=== PATIENT | female | born 1945 | race Caucasian/White ===

== ENCOUNTER 2017-03-27 08:18 | Observation (INO) | payer MEDICARE, BC ==
[2017-03-27] MEDS ORDERED: Heparin 10,000 UNITS/1 ML VIAL ONE ×2 (11:25→11:39)
[2017-03-27] MEDS ORDERED: Isoproterenol 0.2 MG/1 ML AMP ONE (11:30)
[2017-03-27] MEDS ORDERED: Fentanyl 100 MCG/2 ML VIAL ONE ×2 (11:31→16:22)
[2017-03-27] MEDS ORDERED: Promethazine HCl 25 MG/ML VIAL ONE (11:31)
[2017-03-27] MEDS ORDERED: Protamine Sulfate 50 MG/5 ML VIAL ONE (11:39)
[2017-03-27] MEDS ORDERED: Furosemide 40 MG/4 ML VIAL ONE (11:39)
[2017-03-27] MEDS ORDERED: PHENYLEPHRINE-NS 100 MCG/ML 10 ML SYRINGE ONE (11:56)
[2017-03-27] MEDS ORDERED: Dexamethasone 20 MG/5 ML VIAL ONE (11:56)
[2017-03-27] MEDS ORDERED: Propofol 200 MG/20 ML VIAL ONE (11:56)
[2017-03-27] MEDS ORDERED: Ondansetron HCl/PF 4 MG/2 ML Vial ONE (11:56)
--- NOTE | 2017-03-27 15:31 | OP ---
DATE OF PROCEDURE: 03/27/2017 ELECTROPHYSIOLOGY PROCEDURE NOTE PROCEDURES: 1. Comprehensive EP testing with and without left atrial pacing and recording. 2. A 3D mapping and ablation of atrial fibrillation. 3. Transseptal catheterization x2. 4. Intracardiac echocardiography. 5. Cardiac medication infusion. CLINICAL INDICATION: Persistent drug refractory atrial fibrillation. DIRECTOR OF LAND ACQUISITION: Robert Mcneil M.D. ASA CLASSIFICATION: III. ANESTHESIA: General endotracheal anesthesia per Anesthesiology. ADDITIONAL CARDIAC MEDICATIONS: Isoproterenol 5 mcg per minute infusion. Total heparin given 19,00 0 units. Total protamine given 40 mg. ACUTE COMPLICATIONS: None apparent. TOTAL RADIOFREQUENCY TIME: 27.4 minutes. TOTAL FLUOROSCOPY TIME: Zero. METHODS: After informed consent was obtained, the patient was taken to the EP lab in a fasting stat e. Both groins were prepped and draped using ultrasound guidance. The right and left femoral veins were accessed and wires were inserted into the central venous system. The wire was used to place a n 11 Norwegian sheath in the left groin. This was used to place an intracardiac echo probe into the ri ght atrium and right ventricle for imaging. A 8-Norwegian sheath was then placed in the remaining cole ths, one on the left and two on the right. These were all replaced by long 8 Norwegian sheath for cath eter stability. A 3D map was obtained at the right atrium using a circular and ablation catheter al hollie with the coronary sinus. The patient has been anticoagulated and transseptal catheterization wa s performed on two occasions. The patient was anticoagulated at that time, 3D map was obtained at t he left atrium and temperature probe was placed in the esophagus monitoring temperatures during the ablation procedure. Radiofrequency current was applied isolating the veins in the posterior wall of the left atrium and coronary sinus ablation was also delivered at this appeared to be a non-venous trigger. Afterwards, the patient will underwent cardioversion and remained in sinus rhythm. At the conclusion of the procedure, heparin was reversed. Sheaths were pulled. Hemostasis was achieved w ith suture closure. RESULTS: 1. Baseline intervals, QRS interval 52 milliseconds, QT interval 360 milliseconds, HV interval 63 m illiseconds. 2. Atrial function. The patient was in coarse atrial fibrillation. There was severe scar seen dur ing the ablation. Isolation was performed of all pulmonary veins. The patient left common pulmonar y vein, which was isolated singularly. Posterior wall was also incorporated into the lesion sets. Coronary sinus also appeared to be a nonvenous trigger which was ablated and isolated. 3. Ablation details, a total of 27.4 minutes of RF were delivered using an irrigated [employer] ablation catheter. IMPRESSION: Successful ablation isolating pulmonary veins and the posterior wall of the left atrium along the coronary sinus. RECOMMENDATION: Continue with oral anticoagulation.
[2017-03-27] MEDS ORDERED: Ondansetron HCl/PF 4 MG/2 ML Vial IVP PRN ×2 (17:02→18:07)
[2017-03-27] MEDS ORDERED: Non-Formulary Medication 1 EACH PO PRN (17:02)
[2017-03-27] MEDS ORDERED: Promethazine HCl 25 MG/ML VIAL IM/IV PRN (17:02)
[2017-03-27 17:54] VITALS: BMI 28.3
[2017-03-27] MEDS ORDERED: Morphine Sulfate 2 MG/ML SYRINGE SLOW IVP PRN (18:03)
[2017-03-27] MEDS ORDERED: HYDROcodone/Acetaminophen 5/325 mg Tablet PO PRN ×2 (18:03)
[2017-03-27] MEDS ORDERED: diphenhydrAMINE HCl 25 MG CAP PO PRN (18:07)
[2017-03-27] MEDS ORDERED: Temazepam 15 MG CAP PO PRN (18:07)
[2017-03-27] MEDS ORDERED: Silver Sulfadiazine 1% Cream 50 GM JAR TOP PRN (18:07)
[2017-03-27] MEDS ORDERED: Bisacodyl 10 MG SUPP PR PRN (18:07)
[2017-03-27] MEDS ORDERED: traMADol HCl 50 MG TAB PO PRN (18:07)
[2017-03-27] MEDS ORDERED: Bisacodyl 5 MG TAB PO PRN (18:07)
[2017-03-27] MEDS ORDERED: Acetaminophen 325 MG TAB PO PRN (18:07)
[2017-03-27] MEDS ORDERED: Mag-Al 1200 mg/1200 mg/30 ML UDCUP PO PRN (18:07)
[2017-03-27] MEDS ORDERED: Nitroglycerin 0.4 MG TAB (25 Tab Bottle) SL PRN (18:07)
[2017-03-27] MEDS: Apixaban 5 MG TAB PO SCH (22:22)
[2017-03-27] MEDS: Multivit, Therapeutic 1 TAB PO SCH (22:22)
[2017-03-27] MEDS: CeleCOXIB 100 MG CAP PO SCH (22:22)
[2017-03-27] MEDS: Sucralfate 1 GM/10 ML UDCUP PO SCH (22:23)
--- NOTE | 2017-03-28 01:44 | OP ---
REFERRING PHYSICIAN: Robert Mcneil M.D. REASON FOR PROCEDURE: Ms. Santana underwent pulmonary venous isolation procedure. Today, she had po stoperative hypertension and 2D echo was performed to rule out pericardial effusion. Echocardiogram was performed. Images were obtained from the apical and subcostal view ruling out si gnificant amount of pericardial effusion. Trace pericardial effusion is seen. No evidence of tampo nade is documented. Normal LV function is seen. CONCLUSION: No significant pericardial effusion post-pulmonary venous isolation.
[2017-03-28] MEDS: Furosemide 40 MG TAB PO SCH ×2 (06:02→15:29)
[2017-03-28] MEDS ORDERED: Dronedarone HCl 400 MG TAB PO SCH (08:00)
[2017-03-28] MEDS ORDERED: Clopidogrel Bisulfate 75 MG TAB ONE (08:16)
[2017-03-28] MEDS: Apixaban 5 MG TAB PO SCH (08:58)
[2017-03-28] MEDS: Sucralfate 1 GM/10 ML UDCUP PO SCH ×3 (08:58→15:29)
[2017-03-28] MEDS: Multivit, Therapeutic 1 TAB PO SCH (08:58)
[2017-03-28] MEDS: CeleCOXIB 100 MG CAP PO SCH (08:58)
[2017-03-28 11:57] VITALS: BP 101/57; TEMP 97.5
--- NOTE | 2017-03-29 07:03 | DIS ---
DATE OF ADMISSION: 03/27/2017 DATE OF DISCHARGE: 03/28/2017 ADMISSION DIAGNOSES: 1. Persistent atrial fibrillation despite of previous Multaq therapy. 2. Chronic anticoagulation, apixaban. 3. Status post elective pulmonary venous isolation, atrial fibrillation by Dr. Mcneil on 03/27/2017 . HOSPITAL COURSE: Ms. Santana underwent the procedure as above. She has remained stable overnight. PHYSICAL EXAMINATION: VITAL SIGNS: Blood pressure 101/57, heart rate 65, respirations 16, temperature 97.5 degrees Fahren heit. GENERAL: This is an alert, oriented woman in no apparent distress. NECK: Supple. Jugular veins not distended. CHEST: Coarse. No crackles. CARDIOVASCULAR: Heart sounds are regular with rate and rhythm. No murmur or gallop. ABDOMEN: Benign, bowel sounds positive. EXTREMITIES: Lower extremities without edema, clubbing, or cyanosis. The both groin sites are with out significant hematoma. DATABASE: Telemetry strips revealed a sinus rhythm. No recurrent atrial arrhythmias are seen. ASSESSMENT: Ms. Santana is a 71-year-old woman with history of persistent atrial fibrillation despit e Multaq therapy. She underwent a pulmonary venous isolation procedure. She tolerated the procedur e well. No complications were noted. PLAN: Continue previous Eliquis for anticoagulation, stop Multaq. The patient has received Protoni x 40 mg a day for a month, Carafate for next 2 weeks, Lasix 40 mg daily will be added for next few d ays with 20 mEq of potassium supplementation done as needed. Otherwise, no change in her medication regimen was made. She is to follow up in 6 weeks.
== END 2017-03-28 15:36 | disposition home or self-care (01) ==
LOC: CCL 08:18 → 2SW 09:56
PROVIDERS: ADMIT Internal Medicine Cardiovascular Disease; ATTEND Internal Medicine Cardiovascular Disease
DX: I48.1 Persistent atrial fibrillation (principal); G47.33 Obstructive sleep apnea (adult) (pediatric); Z99.89 Dependence on other enabling machines and devices; Z79.01 Long term (current) use of anticoagulants; Z79.899 Other long term (current) drug therapy; Z98.84 Bariatric surgery status; Z96.1 Presence of intraocular lens; Z90.49 Acquired absence of other specified parts of digestive tract; Z98.890 Other specified postprocedural states; Z87.81 Personal history of (healed) traumatic fracture; Z82.3 Family history of stroke; Z82.49 Family history of ischemic heart disease and other diseases of the circulatory system
CPT/HCPCS: 76942; 85347 ×2; 93005 ×2; 93613; 93623; 93656; 93662; 96374; C1731; C1732 ×2; C1759; C1769; G0378; 93010; J1100; J1644; J1940; J2405; J2550; J2704; J2720; J3010

== ENCOUNTER 2017-04-14 13:27 | Outpatient (CLI) | payer MEDICARE, BC ==
[2017-04-14 14:40] LABS: Hematocrit 38.3 % (36.0-47.0); Mean Platelet Volume 7.9 fL (7.4-10.4); Red Blood Cell (RBC) Count 4.38 mill/uL (4.20-5.40); White Blood Cell (WBC) Count 9.1 thou/uL (4.8-10.8)
[2017-04-14 14:45] LABS: PTT 36.1 SEC (22.9-36.1); Prothrombin Time 17.9 SEC (12.0-14.7)
[2017-04-14 15:05] LABS: Anion Gap 11 mmol/L (10-20); BUN (Urea Nitrogen) 33 mg/dL (9.8-20.1); Calc. Creatinine Clearance 0 mL/min (70-130); Calcium 9.4 mg/dL (7.8-10.44); Carbon Dioxide 28 mmol/L (23-31); Chloride 100 mmol/L (98-107); Estimated GFR-MDRD 78
== END 2017-04-14 13:28 | disposition home or self-care (01) ==
LOC: LABBT 13:27
PROVIDERS: ATTEND Internal Medicine Cardiovascular Disease
DX: Z01.818 Encounter for other preprocedural examination (principal); I48.91 Unspecified atrial fibrillation
CPT/HCPCS: 80048; 85027; 85610; 85730; 93005; 93010

== ENCOUNTER 2017-04-16 11:54 | Day surgery (SDC) | payer MEDICARE, BC ==
[2017-04-14 13:46] VITALS: BMI 27.6
--- NOTE | 2017-04-16 18:32 | OP ---
PROCEDURE: Cardioversion. REASON FOR PROCEDURE: Ms. Santana is a 72-year-old female who underwent recent left atrial ablation and pulmonary venous isolation procedure who has recurrent atrial tachyarrhythmia. She was placed o n Multaq. She is on full anticoagulation without fail and she is here for cardioversion. DESCRIPTION OF THE PROCEDURE: The patient received deep sedation by Anesthesia specialist. After a dequate level of sedation achieved, a synchronized 70 joule shock promptly converted the patient nessa k to sinus rhythm. CONCLUSION: Successful cardioversion. PLAN: Routine followup.
== END 2017-04-16 15:20 | disposition home or self-care (01) ==
LOC: CCL 11:54
PROVIDERS: ATTEND Internal Medicine Cardiovascular Disease
DX: I48.1 Persistent atrial fibrillation (principal); I48.4 Atypical atrial flutter; G47.33 Obstructive sleep apnea (adult) (pediatric); E78.5 Hyperlipidemia, unspecified; Z79.01 Long term (current) use of anticoagulants; Z79.899 Other long term (current) drug therapy; Z99.89 Dependence on other enabling machines and devices; Z98.84 Bariatric surgery status; Z96.1 Presence of intraocular lens; Z90.49 Acquired absence of other specified parts of digestive tract; Z98.890 Other specified postprocedural states
CPT/HCPCS: 92960

== ENCOUNTER 2017-11-23 09:42 | Inpatient (IN) | payer MEDICARE, BC ==
[2017-11-23 10:18] LABS: Hemoglobin 14.9 g/dL (12.0-16.0); Mean Corpuscular HGB CONC 31.8 g/dL (32.0-36.0); Mean Corpuscular Hemoglobin 27.8 pg (27.0-31.0); Mean Corpuscular Volume 87.6 fl (81.0-99.0); Mean Platelet Volume 7.2 fL (7.4-10.4); Platelet Count 485 thou/uL (130-400); RBC Distribution Width 12.5 % (11.5-14.5); Red Blood Cell (RBC) Count 5.34 mill/uL (4.20-5.40); White Blood Cell (WBC) Count 19.7 thou/uL (4.8-10.8)
[2017-11-23 10:40] LABS: ALT (SGPT) 11 U/L (8-55); AST (SGOT) 25 U/L (5-34); Albumin 4.6 g/dL (3.4-4.8); Alkaline Phosphatase 56 U/L (40-150); Anion Gap 8 mmol/L (10-20); BUN (Urea Nitrogen) 14 mg/dL (9.8-20.1); Bilirubin, Total 0.4 mg/dL (0.2-1.2); Calc. Creatinine Clearance 0 mL/min (70-130); Calcium 9.7 mg/dL (7.8-10.44); Carbon Dioxide 24 mmol/L (23-31); Chloride 111 mmol/L (98-107); Estimated GFR-MDRD 68; Globulin 2.6 g/dL (2.4-3.5); Glucose 105 mg/dL (83-110); Potassium 3.9 mmol/L (3.5-5.1); Protein, Total 7.2 g/dL (6.0-8.3); Sodium 139 mmol/L (136-145)
[2017-11-23 10:45] LABS: Band 10 % (5-11); CKMB 0.5 ng/mL (0-6.6); Lymphocytes 4 % (21-51); MDiff Complete? YES; Monocytes 2 % (0-10); Neutrophil 84 % (42-75); PLT Morphology Comment Appears Increased; Platelet Clumps SLIGHT; Troponin I Less than 0.010 ng/mL (< 0.028)
[2017-11-23] MEDS ORDERED: VANCOMYCIN HCL IVPB SCH (12:45)
[2017-11-23] MEDS ORDERED: SODIUM CHLORIDE IVPB SCH (12:45)
[2017-11-23] MEDS ORDERED: ADMIXTURE FEE IVPB SCH (12:45)
[2017-11-23] MEDS ORDERED: Piperacillin/Tazobactam 4.5 GM VIAL ONE (12:45)
--- NOTE | 2017-11-23 13:09 | RAD ---
RADIOGRAPH CHEST 1 VIEW: Date: 11/23/17 Time: 1111 HOURS HISTORY: 72-year-old female with chest pain. COMPARISON: 10/01/11. FINDINGS: Hyperinflation consistent with COPD. Prominent interstitial markings, probably chronic, worse than be fore. No consolidation. Retrocardiac midline mass. No pulmonary edema or pneumothorax. No effacement of the lateral costophrenic angles. Old left rib fracture deformities. IMPRESSION: 1. No acute pulmonary findings. 2. Moderate sized hiatal hernia. 3. Emphysema. 4. Old, healed, traumatic left upper rib fracture deformities. [facility] [] POS: [facility]
[2017-11-23 13:25] LABS: Bilirubin Negative (Negative); Blood, Urine Moderate (Negative); Clarity CLOUDY (Clear); Glucose, Urine (Dipstick) Negative (Negative); Leukocyte Moderate (Negative); Nitrite Positive (Negative); Protein, Urine (Dipstick) Trace mg/dL (Neg-Trace); Specific Gravity, Urine 1.017 (1.002-1.036); Urobilinogen 0.2 mg/dL (0.2-1.0)
[2017-11-23 13:27] LABS: Bacteria/HPF 2+ HPF (None Seen); Pathc Cast-AUWi Flag 1.16 (0-2.49); Squamous Epithelial 0-3 HPF (0-3); WBC/HPF 21-50 HPF (0-3)
[2017-11-23 13:39] LABS: Hyaline Casts/LPF 4-6 HYALINE CAST LPF (0-3 Hyaline); Other Casts/LPF 0-3 COARSE GRAN LPF (0-3 Hyaline)
--- NOTE | 2017-11-23 14:23 | PDOC.FPRHP ---
- History of Present Illness Chief Complaint: weakness, chills History of Present Illness: 72 year old female with PMH of atrial fibrillation s/p ablation and cardioversion who presents with a one weak history of weakness. She states that one week ago she had N/V that lasted for about 8 hours. Emesis was NBNB. She was unable to eat for several days due to nausea but had been staying hydrated with fluids. On Friday, she finally attempted to eat again and was able to keep it down. She thought she was feeling much better until she woke up this morning. She could barely walk from room to room due to weakness. She denies any shortness of breath, chest pain, palpitations, or edema. She denies any sick contacts. Patient went to urgent care and was found to have SBP in 70's. She was then transferred over to ED for further evaluation. On presentation to ED her SBP was in the low 80's. After 2L NS bolus, it stabilized in low 100's which is her baseline. She denies any dysuria, but does endorse increased urinary frequency and incontinence. ED Course: 30 ml/kg NS bolus, Vanc 1150 mg, zosyn 4.5 g, 2 L NS - Allergies/Adverse Reactions Allergies Allergy/AdvReac Type Severity Reaction Status Date / Time No Known Allergies Allergy Verified 03/27/17 20:25 - Home Medications Medication Instructions Recorded Confirmed Type Aspirin [Ecotrin] 81 mg PO DAILY 11/23/17 11/23/17 History Celecoxib [Celebrex] 200 mg PO BID 11/23/17 11/23/17 History Journey 3+3 Bariatric Multi Cap 3 capsule PO BID 11/23/17 11/23/17 History - History PMHx: Atrial fibrillation s/p ablation and cardioversion, RAMANDEEP PSHx: Lap band converted to gastric sleeve, cholecystectomy. thoracotomy d/t complication of gastric sleeve surgery FHx: Non-contributory Social: Denies tobacco, alcohol, or drug use. - Review of Systems General: reports: fever/chills, weight/appetite/sleep changes, night sweats, fatigue Eyes: denies: eye pain, vision changes ENT: denies: nasal congestion, rhinorrhea Respiratory: reports: exercise intolerance (due to weakness). denies: cough, congestion, shortness of breath Cardiovascular: denies: chest pain, palpitation, edema, paroxysmal nocturnal dyspnea, orthopnea Gastrointestinal: reports: nausea, vomiting. denies: diarrhea, constipation, abdominal pain Genitourinary: reports: incontinence, polyuria. denies: dysuria Skin: denies: rashes, lesions, jaundice Musculoskeletal: denies: pain, tenderness, stiffness Neurological: reports: weakness. denies: numbness, syncope, seizure Psychological: denies: anxiety, depression - Vital signs BP: 79/48 HR: 119 RR: 18 Tmax: 97.6 F Pox: 96% on RA Wt: 77.20 kg - Physical Exam Constitutional: NAD, awake, alert and oriented, well developed HEENT: normocephalic and atraumatic, EOMI, conjunctiva clear, no scleral icterus -HEENT: Dry mucous membranes Neck: supple, FROM, trachea midline Heart: RRR, normal S1/S2, no murmurs/rubs/gallops -Heart: trace edema Lungs: CTAB, no respiratory distress, good air movement, no wheezing Abdomen: soft, non-tender, bowel sounds present, no masses/distention Musculoskeletal: normal structure, normal tone Neurological: no focal deficit, CN II-XII intact Skin: no rash/lesions, capillary refill <2 seconds Heme/Lymphatic: no unusual bruising or bleeding, no purpura Psychiatric: normal mood and affect, good judgment and insight, intact recent and remote memory FMR H&P: Results - Labs Result Diagrams: 11/23/17 10:08 11/23/17 10:08 Lab results: WBC 19.7 thou/uL (4.8-10.8) H 11/23/17 10:08 Hgb 14.9 g/dL (12.0-16.0) 11/23/17 10:08 Hct 46.8 % (36.0-47.0) 11/23/17 10:08 MCV 87.6 fl (81.0-99.0) 11/23/17 10:08 Plt Count 485 thou/uL (130-400) H 11/23/17 10:08 Band Neuts % (Manual) 10 % (5-11) 11/23/17 10:08 Sodium 139 mmol/L (136-145) 11/23/17 10:08 Potassium 3.9 mmol/L (3.5-5.1) 11/23/17 10:08 Chloride 111 mmol/L (98-107) H 11/23/17 10:08 Carbon Dioxide 24 mmol/L (23-31) 11/23/17 10:08 BUN 14 mg/dL (9.8-20.1) 11/23/17 10:08 Creatinine 0.82 mg/dL (0.6-1.1) 11/23/17 10:08 Glucose 105 mg/dL (83-110) 11/23/17 10:08 Lactic Acid 1.5 mmol/L (0.5-2.2) 11/23/17 10:08 Calcium 9.7 mg/dL (7.8-10.44) 11/23/17 10:08 Total Bilirubin 0.4 mg/dL (0.2-1.2) 11/23/17 10:08 AST 25 U/L (5-34) 11/23/17 10:08 ALT 11 U/L (8-55) 11/23/17 10:08 Alkaline Phosphatase 56 U/L (40-150) 11/23/17 10:08 Creatine Kinase 30 U/L (29-168) 11/23/17 10:57 CK-MB (CK-2) 0.5 ng/mL (0-6.6) 11/23/17 10:08 B-Natriuretic Peptide 411.9 pg/mL (0-100) H 11/23/17 10:57 Serum Total Protein 7.2 g/dL (6.0-8.3) 11/23/17 10:08 Albumin 4.6 g/dL (3.4-4.8) 11/23/17 10:08 Urine Ketones Trace mg/dL (Negative) H 11/23/17 12:57 Urine Blood Moderate (Negative) H 11/23/17 12:57 Urine Nitrite Positive (Negative) H 11/23/17 12:57 Ur Leukocyte Esterase Moderate (Negative) H 11/23/17 12:57 Urine RBC 4-6 HPF (0-3) 11/23/17 12:57 Urine WBC 21-50 HPF (0-3) H 11/23/17 12:57 Ur Squamous Epith Cells 0-3 HPF (0-3) 11/23/17 12:57 Urine Bacteria 2+ HPF (None Seen) H 11/23/17 12:57 - EKG Interpretation EKG: atrial fibrillation with rapid ventricular response - Radiology Interpretation Chest x-ray Status: image reviewed by me, report reviewed by me Additional comment: No acute changes. Emphysema. FMR H&P: A/P - Problem List (1) Severe sepsis Current Visit: Yes Status: Acute Code(s): A41.9 - SEPSIS, UNSPECIFIED ORGANISM; R65.20 - SEVERE SEPSIS WITHOUT SEPTIC SHOCK (2) UTI (urinary tract infection) Current Visit: Yes Status: Acute (3) Atrial fibrillation Current Visit: Yes Status: Acute Code(s): I48.91 - UNSPECIFIED ATRIAL FIBRILLATION (4) RAMANDEEP (obstructive sleep apnea) Current Visit: Yes Status: Chronic Code(s): G47.33 - OBSTRUCTIVE SLEEP APNEA (ADULT) (PEDIATRIC) - Plan Severe sepsis 2/2 UTI - 30 ml/kg bolus in ED and 2L NS bolus - Adequately fluid resuscitated - Tolerating PO - Vanc and zosyn x1 in ED; will d/c and start rocephin - Blood and urine cultures pending - Monitor BP; bolus if BP low - BNP elevated at 411; no comparison level, so gentle hydration UTI - See plan as above Atrial fibrillation - RVR resolved without intervention - s/p ablation and cardioverison earlier in the year; was taken off of all anti- arrhythmics and anticoagulation in September - Follows with Dr. Locke, consider consulting in AM due to recurrence of A-fib - On baby ASA daily - Consider digoxin if pt goes into afib with RVR as BP is already low - Echo pending to evaluate for HF as cause of atrial fib recurrence Elevated BNP - Around 400; no baseline lab value to compare - Echo pending to evaluate for HF as cause of afib recurrence RAMANDEEP - On home CPAP; will continue while in hospital Code status: Full DVT ppx: SCDs Dispo: Admit to IMCU. Anticipate LOS >48 hours. FMR H&P: Upper Level - Plan Date/Time: 11/23/17 1423 Sarah Milian, PGY3, have evaluated this patient and agree with findings/plan as outlined by international recruiter resident. Pertinent changes/additions are listed here. This is a 72yo WF w/ PMH A-fib s/p ablation in 2017, thoracostomy, hx of gastric sleeve, presented initially to outside urgent care for weakness that has progressively gotten worse over the past few days, and was found to be in a- fib w/ RVR, and they were unable to get a pulse, so she was transferred over here. She reports F and N/V within the past week, with diminished appetite for the past few days. When coming to [facility], she was found to be hypotensive with initial BP in 70's, however they responded to fluids with SBP in 90's bringing it closer to her normal SBP around 100. Denies any CP, SOB, LE edema, palpitations, increased weight gain. PE: Gen: Non-toxic appearing female, AOX4, in no acute distress. CV: Irregularly irregular. No murmurs Resp: CTA bilaterally Ext: Non-pitting edema LE bilaterally Abd: [id number], no rebound, no guarding. A/P: 1) Sepsis 2/2 UTI - will start rocephin and f/u with urine cx. Responding to fluids. F/u with blood cx. 2) Paroxysmal A-fib- Currently rate controlled. Will monitor closely and use Digoxin to rate control patient if needed. Consider f/u with Dr. Locke tomorrow or sooner if any concerns, as patient is s/p ablation in 2017 and currently on ASA. UTI may have caused A-fib to reoccur. Will also check TSH. 3) UTI - Rocephin, gentle fluids. 4) Elevated BNP- currently asymptomatic. Will monitor fluid status, and give gentle fluids. 5) RAMANDEEP - CPAP at night 6) HLD - consider statin. Unsure why patient is off statins. F/u with PCP outpatient.
[2017-11-23] MEDS ORDERED: Acetaminophen 325 MG TAB PO PRN (14:33)
[2017-11-23] MEDS ORDERED: Ondansetron ODT 4 MG TAB PO PRN ×2 (14:33→14:38)
[2017-11-23] MEDS ORDERED: Ondansetron HCl/PF 4 MG/2 ML Vial IVP PRN ×2 (14:33→14:38)
[2017-11-23] MEDS ORDERED: Sodium Chloride 0.9% 1,000 ML IV SCH ×3 (14:38→15:10)
[2017-11-23 14:59] VITALS: BMI 29.6
[2017-11-23 16:11] LABS: Thyroid Stimulating Hormone 0.3775 uIU/mL (0.35-4.94)
[2017-11-23] MEDS: cefTRIAXone\\ROCEPHIN 1 GM in Sodium Chloride 0.9% 100 ML IVPB SCH (16:57)
[2017-11-23] MEDS ORDERED: Piperacillin/Tazobactam 4.5 GM in Sodium Chloride 0.9% 100 ML IVPB SCH (18:00)
[2017-11-23] MEDS: Acetaminophen 325 MG TAB PO PRN (23:59)
[2017-11-24] MEDS ORDERED: Sodium Chloride 0.9% 500 ML IV SCH ×2 (00:30→06:45)
--- NOTE | 2017-11-24 00:42 | HP ---
ADDENDUM Please see the history and physical done by the resident for which I concur. Patient was seen and evaluated and discussed and examined with the residents at bedside. HISTORY OF PRESENT ILLNESS: This is a 72-year-old white female who has really had not much sourced p ast medical history and history of atrial fibrillation and rapid ventricular response which she event ually had an ablation for, comes in with one week long history of low grade fever, some nausea and vo miting, although only minimum, just generally speaking not feeling well and then got even weaker toda y. She then went to an urgent care where they cannot really even get a blood pressure on her and not ed that she was in atrial fibrillation and sent her into the emergency room. Here, blood pressures i n the 90s/40s and pulse rate in 90s intermittent atrial fibrillation. She did not really have much o ther complaints other than just extreme weakness, but now however is short of breath. No chest pain, no syncope or near syncope. Denies urinary symptoms. Past medical history, family history, surgical history, medications, social history and review of sys tems, per the resident's history and physical for which I concur. PHYSICAL EXAMINATION: GENERAL: Does not appear to be in major distress. She is pretty comfortable, breathing okay, not lo oking particularly . ENT: Does have slightly dry mucosa. Despite a couple of liters we have already given to her, which has helped to get her blood pressure to 90s/40s, otherwise ENT is normal. CHEST: Clear. CARDIOVASCULAR: Somewhat distant, but irregularly irregular on the monitor. She is currently in atr ial fibrillation. ABDOMEN: Benign. EXTREMITIES: Show no edema. LABORATORY AND X-RAY FINDINGS: Blood workup, white count is slightly elevated. Electrolytes looked fine. Chest x-ray, little rotated, but otherwise normal. ASSESSMENT AND PLAN: Atrial fibrillation with rapid ventricular response and hypotension from urinar y tract infection. Urinalysis did look like she has a bladder infection, so certainly we will cover that in uribe culture including blood culture and urine culture and we will put her on IV antibiotics, likely Levaquin. We will monitor blood pressure and pulse. We will put her in the step down unit just so we can monitor her blood pressure closely if her pulse goes too high and blood pressure starts dropping, will try p utting her on digoxin and we are going to try to hold off beta mustapha, calcium channel mustapha while blood pressure is low. We will give her fluids at this point the most important thing and make sure she is anticoagulated and put on appropriate SCDs, proton pump inhibitors, etc. History of anticoagulation, SCDs, but then likely we are going to put her back on something like Eliq uis for atrial fibrillation and she came in on aspirin.
[2017-11-24 03:54] LABS: #Lymphocytes 0.6 thou/uL (1.20-3.40); #Monocytes 1.2 thou/uL (0.11-0.59); #Neutrophils 13.8 thou/uL (1.40-6.50); %Basophils 0.1 % (0.0-1.0); %Eosinophils 0.3 % (0.0-10.0); %Lymphocytes 3.8 % (21.0-51.0); %Monocytes 7.6 % (0.0-10.0); %Neutrophils 88.2 % (42.0-75.0); Hemoglobin 12.2 g/dL (12.0-16.0); Mean Corpuscular HGB CONC 31.6 g/dL (32.0-36.0); Mean Corpuscular Hemoglobin 27.6 pg (27.0-31.0); Mean Corpuscular Volume 87.3 fl (81.0-99.0); Mean Platelet Volume 6.9 fL (7.4-10.4); Platelet Count 441 thou/uL (130-400); RBC Distribution Width 12.4 % (11.5-14.5); Red Blood Cell (RBC) Count 4.44 mill/uL (4.20-5.40); White Blood Cell (WBC) Count 15.7 thou/uL (4.8-10.8)
[2017-11-24 04:24] LABS: Anion Gap 9 mmol/L (10-20); BUN (Urea Nitrogen) 31 mg/dL (9.8-20.1); Calc. Creatinine Clearance 71 mL/min (70-130); Calcium 7.4 mg/dL (7.8-10.44); Carbon Dioxide 24 mmol/L (23-31); Chloride 106 mmol/L (98-107); Estimated GFR-MDRD 61; Glucose 100 mg/dL (83-110); Potassium 3.5 mmol/L (3.5-5.1); Sodium 135 mmol/L (136-145)
--- NOTE | 2017-11-24 06:30 | PDOC.FM ---
- Subjective Subjective: Fevered overnight. Heart rate at that time was 144 (sinus tach). She initially came in, in afib with rvr, but self converted. She has been off of multaq and eliquis since September. She is s/p an ablation and cardioversion for her afib. This morning she complains of dry mouth. HR in the low 100s and bp low normal. She also has inadequate urine output, not currently getting maintenance fluids. - Objective MAR Reviewed: Yes Vital Signs & Weight: Vital Signs (12 hours) Temp Pulse Resp BP Pulse Ox 11/24/17 04:19 98.6 F 105 H 18 102/64 100 11/23/17 23:56 101.4 F H 144 H 22 H 126/75 100 11/23/17 20:10 98.3 F 85 18 130/67 100 Weight Weight 80.739 kg I&O: 11/22/17 11/23/17 11/24/17 06:59 06:59 06:59 Intake Total 950 Output Total 550 Balance 400 Result Diagrams: 11/24/17 03:43 11/24/17 03:43 Radiology Reviewed by me: Yes <Kyra Bowman - Last Filed: 11/24/17 08:15> - Objective Vital Signs & Weight: Vital Signs (12 hours) Temp Pulse Resp BP Pulse Ox 11/24/17 11:23 89 16 96 11/24/17 11:18 99.3 F 87 15 98/55 L 96 11/24/17 08:00 98.2 F 112 H 19 11/24/17 07:19 98.2 F 112 H 19 105/67 93 L 11/24/17 04:19 98.6 F 105 H 18 102/64 100 11/23/17 23:56 101.4 F H 144 H 22 H 126/75 100 Weight Weight 80.739 kg I&O: 11/23/17 11/24/17 11/25/17 06:59 06:59 06:59 Intake Total 950 Output Total 550 Balance 400 Result Diagrams: 11/24/17 03:43 11/24/17 03:43 <Christiano Tillman - Last Filed: 11/24/17 11:41> Phys Exam - Physical Examination Constitutional: NAD HEENT: PERRLA, moist MMs Neck: supple Respiratory: no wheezing rales at the bases bilaterally Cardiovascular: no significant murmur sinus tachycardia Gastrointestinal: soft, non-tender, no distention hypoactive bowel sounds mild edema in lower extremities bilaterally, nonpitting Neurological: non-focal, moves all 4 limbs Psychiatric: normal affect, A&O x 3 Skin: no rash <Kyra Bowman - Last Filed: 11/24/17 08:15> Dx/Plan (1) Atrial fibrillation Code(s): I48.91 - UNSPECIFIED ATRIAL FIBRILLATION Status: Acute (2) Severe sepsis Code(s): A41.9 - SEPSIS, UNSPECIFIED ORGANISM; R65.20 - SEVERE SEPSIS WITHOUT SEPTIC SHOCK Status: Acute (3) UTI (urinary tract infection) Status: Acute (4) RAMANDEEP (obstructive sleep apnea) Code(s): G47.33 - OBSTRUCTIVE SLEEP APNEA (ADULT) (PEDIATRIC) Status: Chronic - Plan Plan: Severe sepsis 2/2 UTI -fevered overnight to 101 and sinus tachycardia to 144. - 30 ml/kg bolus in ED and 2L NS bolus - low normal blood pressure this am and inadequate UOP ~30ml/hr over the past 16 hours. Ordered a 500ml bolus. Will order an additional liter of normal saline at 200 ml/hr since she also has a small PARTH. Will reassess at that time if she needs maintenance fluids. - Tolerating PO, will also encourage PO intake - Vanc and zosyn x1 in ED UTI - See plan as above Atrial fibrillation - RVR resolved without intervention - Likely went into Afib from UTI sepsis - s/p ablation and cardioverison earlier in the year; was taken off of all anti- arrhythmics and anticoagulation in September by Dr. Locke. She was taking multaq and eliquis. - On baby ASA daily - Echo pending to evaluate for HF, elevated BNP Elevated BNP - Around 400; no baseline lab value to compare - Echo pending to evaluate for HF RAMANDEEP - On home CPAP; will continue while in hospital -Will give nebs prn Code status: Full DVT ppx: SCDs <Kyra Bowman - Last Filed: 11/24/17 08:15> Attending Addendum - Attending Addendum Date/Time: 11/24/17 [id number] I personally evaluated the patient and discussed the management with Dr. Bowman I agree with the History, Examination, Assessment and Plan documented above with any addition or exceptions noted below. continue Rocephin will notify Dr Locke of patients admission DVT prophylaxis with lovenox. History of parosymal atrial fibrillation s/p ablation Heart rate controlled at present. <Christiano Tillman - Last Filed: 11/24/17 11:41>
[2017-11-24] MEDS ORDERED: Sodium Chloride 0.9% 1,000 ML IV SCH ×2 (08:15→08:30)
--- NOTE | 2017-11-24 09:46 | RAD ---
PA AND LATERAL CHEST RADIOGRAPH: Date: 11-24-17 History: Bronchi. Re-evaluate. Comparison: 11-23-17 FINDINGS: Cardiac silhouette and pulmonary vasculature are within normal limits. There is linear atelectasis ve rsus scarring in the lateral left midlung zone. Lungs are otherwise clear. Again noted is a moderate sized hiatal hernia. Remote left sided rib fractures are again present. There is an area of increased density overlying the epigastric region, but this may be related to superimposition of structures an d likely related to overlying artifact. IMPRESSION: 1. No acute cardiopulmonary process. 2. Minimal atelectasis versus scarring left midlung zone and left lung base. 3. Moderate sized hiatal hernia. 4. Remote left rib fractures. POS: [facility]
--- NOTE | 2017-11-24 13:01 | EKG ---
Test Reason : STAT Blood Pressure : / mmHG Vent. Rate : 146 BPM Atrial Rate : 146 BPM P-R Int : 124 ms QRS Dur : 112 ms QT Int : 290 ms P-R-T Axes : 070 -44 135 degrees QTc Int : 451 ms Sinus tachycardia Left axis deviation Anterolateral infarct (cited on or before 28-MAR-2017) Abnormal ECG When compared with ECG of 23-NOV-2017 10:14, (Unconfirmed) Sinus rhythm has replaced Atrial fibrillation Non-specific change in ST segment in Anterior leads T wave inversion more evident in Lateral leads Confirmed by TARAS MARTINEZ, DR. Le ([id number]) on 11/24/2017 1:01:04 PM Referred By: CARSON Confirmed By:DR. Rey GRAJEDA MD
--- NOTE | 2017-11-24 13:12 | CON ---
DATE OF CONSULTATION: 11/24/2017 SERVICE: Pulmonary Medicine. REASON FOR CONSULTATION: IMCU patient. HISTORY OF PRESENT ILLNESS: The patient is a 72-year-old white female with past medical history significant for obstructive sleep apnea. She is in her usual state of health until a week prior to admission when she started having a little bit of nausea and vomiting. She was unable to keep much down. She tried drinking as much fluid she could, but ultimately, became increasingly weak. She presented to the Emergency Department. Blood pressures were found to be marginal. She did not have any end-organ damage, but she was given multiple boluses of fluid. She currently has fluids running at 250 an hour. She is having minimal difficulty with breathing. She has a sensation that she is breathing heavily. Otherwise, there has been no interval change to her condition. PAST MEDICAL HISTORY: 1. Atrial fibrillation with history of ablation. 2. Obstructive sleep apnea. PAST SURGICAL HISTORY: 1. Laparoscopic band procedure converted to a gastric sleeve. 2. Cholecystectomy. 3. History of thoracotomy following complications of gastric sleeve surgery. FAMILY HISTORY: Noncontributory. SOCIAL HISTORY: Negative for alcohol, tobacco or illicit drug use. She has no exposure to chemicals, dust, asbestos or tuberculosis. ALLERGIES: No known drug allergies. MEDICATIONS LIST: List of her inpatient medications were reviewed. No specific updates were made at this time. REVIEW OF SYSTEMS: General, head, ears, eyes, nose, throat, cardiovascular, respiratory, GI, , musculoskeletal, neurologic and skin is negative except as mentioned in the HPI. PHYSICAL EXAMINATION: VITAL SIGNS: Afebrile currently with a T-max overnight of 101.4. Pulse 87, blood pressure 98/55, respirations 15, saturation 96% on room air. GENERAL: The patient is awake, alert, no apparent distress. LUNGS: Excellent air entry. Dependent crackles are present. There is no prolonged expiratory phase or wheezing appreciated. HEART: Normal rate, regular. ABDOMEN: Soft, nontender, nondistended. Bowel sounds are positive. MUSCULOSKELETAL: No cyanosis or clubbing. There is no pitting in the bilateral lower extremities. NEUROLOGIC: Grossly nonfocal. LABORATORIES: WBC 19.7, is improving to 15.7. CBC is otherwise unremarkable. Neutrophil count is 88%. Basic metabolic profile is unremarkable. BNP 411, CK 30. Liver function studies are unremarkable. TSH is normal. Procalcitonin is slightly elevated at 1.15. Lactate was negative. Urinalysis, positive nitrites and multiple white blood cells. Urine culture is growing Proteus mirabilis. Blood cultures x2 are unremarkable. IMAGING: Chest x-ray demonstrates no acute cardiopulmonary abnormality. There is a moderate to large hiatal hernia present. ASSESSMENT: 1. Sepsis without end-organ damage. 2. Urinary tract infection. 3. Obstructive sleep apnea. 4. Marginal blood pressures. PLAN: The patient is currently stable for transition to the medical unit. IV fluids will be interrupted as the patient is now tolerating p.o. We will continue her empiric antibiotics directed at issues. Vancomycin will be interrupted. Pulmonary Critical Care will continue to follow along for the time being, but will likely transition off of her care shortly. She can follow up with Dr. Cohen in the outpatient setting as previously directed for sleep apnea. 70 minutes have been devoted to this patient in various activities. I personally reviewed all imaging studies and laboratory data noted within this document. For fifty percent of this time, I was interacting with the patient at the bedside or coordinating care with the care team. For the remainder of the time I was immediately available to the patient in the hospital unit. KATARINA
[2017-11-24] MEDS: Sodium Chloride 0.9% 1,000 ML IV SCH ×2 (16:45→21:10)
[2017-11-24] MEDS: cefTRIAXone\\ROCEPHIN 1 GM in Sodium Chloride 0.9% 100 ML IVPB SCH (16:45)
[2017-11-24] MEDS: Acetaminophen 325 MG TAB PO PRN (21:09)
[2017-11-25] MEDS: Sodium Chloride 0.9% 1,000 ML IV SCH (03:29)
[2017-11-25 07:16] LABS: #Eosinphils 0.1 thou/uL (0.0-0.7); #Lymphocytes 0.8 thou/uL (1.20-3.40); #Monocytes 1.1 thou/uL (0.11-0.59); #Neutrophils 12.4 thou/uL (1.40-6.50); %Eosinophils 0.6 % (0.0-10.0); %Lymphocytes 5.5 % (21.0-51.0); %Monocytes 7.8 % (0.0-10.0); %Neutrophils 86.1 % (42.0-75.0); Hemoglobin 12.6 g/dL (12.0-16.0); Mean Corpuscular HGB CONC 32.1 g/dL (32.0-36.0); Mean Corpuscular Hemoglobin 28.3 pg (27.0-31.0); Mean Corpuscular Volume 88.2 fl (81.0-99.0); Mean Platelet Volume 6.8 fL (7.4-10.4); Platelet Count 513 thou/uL (130-400); RBC Distribution Width 12.5 % (11.5-14.5); Red Blood Cell (RBC) Count 4.46 mill/uL (4.20-5.40); White Blood Cell (WBC) Count 14.4 thou/uL (4.8-10.8)
--- NOTE | 2017-11-25 07:22 | PDOC.FM ---
- Subjective Subjective: Febrile overnight with tachycardia to 118. Down to low 100s this am. No acute complaints this am. - Objective MAR Reviewed: Yes Vital Signs & Weight: Vital Signs (12 hours) Temp Pulse Resp BP Pulse Ox 11/25/17 04:05 99.8 F H 108 H 18 110/65 96 11/24/17 23:53 100.4 F H 113 H 17 95 11/24/17 20:10 100.1 F H 118 H 16 11/24/17 19:19 100.1 F H 118 H 16 114/61 96 Weight Weight 82.129 kg I&O: 11/24/17 11/25/17 11/26/17 06:59 06:59 06:59 Intake Total 950 3420 Output Total 550 1400 Balance 400 2019 Result Diagrams: 11/25/17 07:01 11/25/17 07:01 <Kyra Bowman - Last Filed: 11/25/17 08:26> - Objective Vital Signs & Weight: Vital Signs (12 hours) Temp Pulse Resp BP BP Pulse Ox 11/25/17 11:28 114 H 16 107/78 95 11/25/17 09:21 87 16 96 11/25/17 08:00 98.5 F 87 16 97 11/25/17 07:46 98.5 F 109 H 21 H 95/67 96 11/25/17 04:05 99.8 F H 108 H 18 110/65 96 Weight Weight 82.129 kg I&O: 11/24/17 11/25/17 11/26/17 06:59 06:59 06:59 Intake Total 950 3420 Output Total 550 1400 Balance 400 2019 Result Diagrams: 11/25/17 07:01 11/25/17 07:01 <Christiano Tillman - Last Filed: 11/25/17 12:02> Phys Exam - Physical Examination Constitutional: NAD HEENT: PERRLA, moist MMs Neck: supple Respiratory: no wheezing, no rales, no rhonchi, clear to auscultation bilateral Cardiovascular: no significant murmur, no rub irregularly irregular Gastrointestinal: soft, non-tender, no distention 1+ edeme nonpitting Neurological: non-focal, normal sensation Psychiatric: normal affect, A&O x 3 Skin: no rash <Kyra Bowman - Last Filed: 11/25/17 08:26> Dx/Plan (1) Sepsis Code(s): A41.9 - SEPSIS, UNSPECIFIED ORGANISM Status: Acute (2) Acute cystitis Code(s): N30.00 - ACUTE CYSTITIS WITHOUT HEMATURIA Status: Acute (3) Atrial fibrillation Code(s): I48.91 - UNSPECIFIED ATRIAL FIBRILLATION Status: Acute (4) RAMANDEEP (obstructive sleep apnea) Code(s): G47.33 - OBSTRUCTIVE SLEEP APNEA (ADULT) (PEDIATRIC) Status: Chronic - Plan Plan: 72 yo f admitted for severe sepsis 2/2 acute complicated cystitis. Sepsis 2/2 acute complicated cystitis- - No signs of end organ damage - Febrile overnight and persistent tachycardia, will order a renal us and EKG; rhythm sounds irregular (fevered overnight to 100.4 and sinus tachycardia to 118 ) - give an additional 1.5L yesterday morning (bolus) and placed on maintenance. - UOP adequate this am, but since HR increased again, will add a 1L bolus of fluids. BP at baseline this am. - Tolerating PO, will also encourage PO intake - Vanc and zosyn x1 in ED - Continue rocephin today based on urine culture and sensitivities. Consider PO cipro tomorrow. UTI - See plan as above Atrial fibrillation - RVR resolved without intervention - Likely went into Afib from sepsis d/t acute complicated cystitis - s/p ablation and cardioverison earlier in the year; was taken off of all anti- arrhythmics and anticoagulation in September by Dr. Locke. - She was taking multaq and eliquis. - On baby ASA daily - Echo completed, pending read. - Irregularly irregular rhythm on exam this am. Will order an EKG to further assess. Will call [facility] if in afib. Elevated BNP - Around 400; no baseline lab value to compare - Echo completed, pending read. RAMANDEEP -On home CPAP; will continue while in hospital -Will give nebs prn Code status: Full DVT ppx: SCDs <Kyra Bowman - Last Filed: 11/25/17 08:26> Attending Addendum - Attending Addendum Date/Time: 11/25/17 [id number] I personally evaluated the patient and discussed the management with Dr. Bowman I agree with the History, Examination, Assessment and Plan documented above with any addition or exceptions noted below. Low grade fever overnight with associated Afib with RVR, repeat echocardiogram done results pending , will obtain renal US consider pyelonephtitis verse lower UTI start pulmonary toilet with increased activity and incentive spirometry. CXR without infiltrate. With notify Dr Locke EPS Legal Administrative Assistant for consideration of resumption prior RX eliquis and multaq before ablation and conversion to NSR in the past. Continue to trend WBC observe s/s occult unidentified infection. <Christiano Tillman - Last Filed: 11/25/17 12:02>
[2017-11-25 07:40] LABS: Anion Gap 7 mmol/L (10-20); BUN (Urea Nitrogen) 18 mg/dL (9.8-20.1); Calc. Creatinine Clearance 87 mL/min (70-130); Calcium 7.4 mg/dL (7.8-10.44); Carbon Dioxide 24 mmol/L (23-31); Chloride 108 mmol/L (98-107); Estimated GFR-MDRD 76; Glucose 79 mg/dL (83-110); Potassium 3.4 mmol/L (3.5-5.1); Sodium 136 mmol/L (136-145)
[2017-11-25] MEDS ORDERED: cefTRIAXone\\ROCEPHIN 1 GM in Sodium Chloride 0.9% 100 ML IVPB SCH (08:30)
[2017-11-25] MEDS: Enoxaparin Sodium 40 MG/0.4 ML SYRINGE SC SCH (08:44)
[2017-11-25] MEDS ORDERED: Sulfameth/Trimethoprim DS 800-160mg TAB PO SCH (09:00)
[2017-11-25] MEDS ORDERED: Magnesium 2 GM/NS 0.9% 100 ML 2 GM in Premix Bag 1 BAG IVPB SCH (10:00)
[2017-11-25] MEDS: Potassium Chloride 20 MEQ TAB PO SCH ×3 (10:32→17:06)
[2017-11-25 11:10] LABS: Band 21 % (5-11); Lymphocytes 9 % (21-51); Monocytes 3 % (0-10)
[2017-11-25 11:15] LABS: PLT Morphology Comment Appears Increased
--- NOTE | 2017-11-25 12:18 | ULT ---
BILATERAL RENAL ULTRASOUND: Date: 11/25/17 COMPARISON: None. HISTORY: Febrile cystitis. TECHNIQUE: Multiplanar Ascencio scale sonographic imaging of the kidneys and urinary bladder obtained. FINDINGS: Right kidney measures 9.8 x 4.4 x 5.9 cm. Left kidney measures 12.6 x 6.6 x 5.5 cm. There is no right-sided hydronephrosis, stone, or mass lesion. There is mild nonspecific left-sided hydronephrosis, which is seen on pre and post-void imaging. Pre- void urinary bladder volume is 18 mL. The post-void urinary bladder appears empty. IMPRESSION: Findings suggesting mild left-sided hydronephrosis seen on pre and post-void imaging. Recommend furth er assessment via CT. CODE T. POS: EVERETTE
--- NOTE | 2017-11-25 13:12 | PRG ---
DATE OF SERVICE: 11/25/2017 SERVICE: Pulmonary Medicine. INTERVAL HISTORY: The patient is doing fine from a respiratory standpoint. She had a low-grade fever last night. That being said, the temperature profile seems to be improving. She denies any chest pain, nausea, vomiting, or chills. She took an albuterol treatment this morning because she feels watched up in the bed. She felt that opened up her lungs a little bit. She is not coughing at all. She has no other complaints. PHYSICAL EXAMINATION: VITAL SIGNS: Currently afebrile with a T-max of 100.4. Pulse 87, blood pressure 95/67, respirations 16, saturation 96% on room air. GENERAL: The patient is awake and alert, in no apparent distress. LUNGS: Decent air entry bilaterally. There is no prolonged expiratory phase, wheezing, rhonchi or crackles. HEART: Normal rate, regular. ABDOMEN: Soft, nontender, nondistended. Bowel sounds are positive. MUSCULOSKELETAL: No cyanosis or clubbing. There is no pitting in the bilateral lower extremities. NEUROLOGIC: Grossly nonfocal. LABORATORY DATA: WBC 14.4 and down trending, hemoglobin 12.6, platelets 513, 000. Neutrophil count is improving 86%. Potassium 3.4. Basic metabolic profile is otherwise unremarkable. Calcium 7.4 and stable. BNP 411. Urine culture is growing Proteus mirabilis, which is essentially pansensitive to second and third generation cephalosporins. IMAGING: Echocardiogram demonstrates normal ejection fraction, the left atrium is mildly dilated. Moderate mitral regurgitation is present. Moderate aortic regurgitation is also noted. Trivial tricuspid changes are evident. ASSESSMENT: 1. Sepsis without end organ damage. 2. Urinary tract infection. 3. Obstructive sleep apnea. 4. Marginal blood pressures, very close to her baseline. 5. Atrial fibrillation, rate controlled. DISCUSSION AND PLAN: Once again, the patient can be transitioned to the telemetry unit. From my perspective, she is stable for transition out of the hospital once a plan is in place for her atrial fibrillation. She does not need IV fluids as she is tolerating PO. She will continue her CPAP as previously directed. I will replace the potassium today. She will need to complete a course of antibiotics directed at uncomplicated UTI. KATARINA
--- NOTE | 2017-11-25 13:44 | CT ---
CT OF THE ABDOMEN AND PELVIS WITH AND WITHOUT CONTRAST: Date: 11/25/17 COMPARISON: None. HISTORY: Hydronephrosis noted on recent ultrasound on the left, for which CT was recommended. TECHNIQUE: Serial axial CT imaging obtained at 5 mm intervals from the lung bases through the pubic symphysis wi th and without IV contrast using a CT urogram protocol. Coronal reformatted imaging obtained. FINDINGS: Small bilateral pleural effusions are noted. The distal esophagus is distended and contains a large amount of debris within the lower chest. No no rmal stomach is seen. Perhaps this represents sequelae of prior gastrectomy. Clinical correlation is essential. No free intraperitoneal air or fluid is evident. Splenic granulomata are noted. The liver and pancreas appear grossly unremarkable, as do the adrenal glands. The gallbladder is surgically absent. The right kidney is unremarkable. There is prominent hydronephrosis on the left. This is secondary to an obstructing proximal left uret eral stone measuring 6.0 mm in transverse dimension and 7.0 mm in craniocaudal dimension. There are t hree intrarenal calculi within the left kidney as well, the largest in the mid pole region measuring in the 8.0 mm range. There is stranding of the perinephric fat adjacent to the hydronephrotic kidney which could be on the basis of obstruction and/or secondary infection. On axial image 25, there is a linear area of densit y inseparable from the dilated renal pelvis which could simply represent a vessel running along the m argin of the hydronephrotic renal pelvis. A septation or even a developing abscess in this region can not be fully excluded. Follow-up imaging is recommended following decompression of the left system . There is a punctate focus of gas within the urinary bladder which could be on the basis of prior Fole y catheterization or infection. No evidence for obstructive uropathy is seen on the right. There is extensive diverticulosis of the sigmoid colon with no evidence for diverticulitis. No focal area of bowel inflammatory change or obstruction is seen. There is no lymphadenopathy identified within the abdomen or pelvis. There is atherosclerotic calcifi cation of the infrarenal abdominal aorta and its branches. Osseous structures demonstrate no worrisom e lytic or blastic lesions. There is prominent facet hypertrophic change within the lower lumbar spin e. A focal area of dystrophic calcification is seen in the right inguinal region which may be on the basis of calcified node. IMPRESSION: 1. Hydronephrotic left kidney secondary to an obstructing proximal left ureteral stone measuring in the 6-7 mm range. The left kidney is hypoenhancing. There is stranding of the fat in the perinephric region which could be on the basis of edema from obstruction or potentially secondary infection. Thes e findings are concerning for pyonephrosis. Linear density projects through the dilated renal pelvis on image 24 for which follow-up imaging following decompression is advised. 2. Distended distal esophagus containing large volume debris. Question prior surgical history. 3. Sigmoid diverticulosis without evidence for diverticulitis. Recommend urology consultation. Results called to Dr. Bowman at 1245 hours on 11/25/17. CODE CR. POS: EVERETTE
--- NOTE | 2017-11-25 13:45 | PDOC.EVN ---
Event Note - Event Note Event Note: Renal US found to have left hydronephrosis. Abdominal CT ordered which showed an obstructing ureteral stone (8.5mm) and with severe left hydronephrosis and with fat stranding concerning for an abscess. Urology consulted. Pt has also been in afib today. Dr. Locke consulted who recommends cardioversion inpatient after ureteral stone removal.
[2017-11-25 14:45] LABS: INR-International Normal Ratio 1.2; PTT 33.8 SEC (22.9-36.1); Prothrombin Time 15.3 SEC (12.0-14.7)
[2017-11-25] MEDS ORDERED: Fentanyl 100 MCG/2 ML VIAL ONE (14:48)
[2017-11-25] MEDS ORDERED: Midazolam HCl 2 mg/2 ml Vial ONE (14:48)
[2017-11-25] MEDS ORDERED: Sodium Bicarbonate 2.5 MEQ/5 ML VIAL ONE (14:48)
--- NOTE | 2017-11-25 17:29 | CT ---
CT GUIDED LEFT NEPHROSTOMY TUBE PLACEMENT: Date: 11/25/17 HISTORY: Patient with obstructing left UPJ calculus, as well as evidence of sepsis and CT findings suggesting pyelonephritis. Placement of left nephrostomy tube was requested. TECHNIQUE: Patient received IV Zosyn, as well as IV Vancomycin prior to this exam. The procedure, including risk s and complications, were explained to the patient, and the patient was placed on the CT table in the prone position. Limited noncontrasted CT scan was obtained with a grid localizer in place. An area o verlying a posterior mid left renal sunitha was marked and then meticulously prepped and draped in the usual sterile fashion. Skin and subcutaneous tissues were infiltrated with buffered 1% lidocaine for local anesthesia. A 22 gauge Chiba needle was advanced into the posterior sunitha and positioning was confirmed with CT guidan ce. A .018 guidewire was placed, and again, positioning was confirmed with three axial noncontrasted C T images. The needle was exchanged over the guidewire for a 6 Brazilian AccuStick sheath with stiff inne r cannula, as well as dilator. The sheath was advanced, and the inner dilator and stiff cannula were removed. There was return of purulent fluid. The .018 guidewire was exchanged for a .035 Amplat z guidewire and positioning was confirmed with axial noncontrast CT images. The introducer sheath was exchanged over the guidewire for an 8 Brazilian tissue dilator, followed by pl acement of an 8 Brazilian nephrostomy tube. The distal portion of the tube was coiled in the region of t he renal pelvis. There was a return of purulent fluid. Approximately 30 mL of purulent fluid was aspi rated. The catheter was placed to gravity drainage with continued drainage of purulent material. The catheter was secured in place utilizing 2-0 Ethilon suture material, and a dry, sterile dressing was placed. The patient tolerated the procedure well and without immediate complication. The patient was transpor gabriel to her hospital room in stable condition. IMPRESSION: 1. Technically successful CT guided percutaneous left nephrostomy tube placement. Purulent fluid was aspirated and sent for labs. 2. Follow-up CT scan examination is recommended to ensure resolution of the heterogeneous appearance of the left kidney, likely related to pyelonephritis and striated appearance due to obstruction. How ever, there is suggestion of an additional low density area in the region of the left renal hilum whi ch could be related to closely adjacent parapelvic cyst, although this could represent purulent mater ial within a portion of the collecting system. Again, follow-up evaluation is recommended after treat ment and improvement in urine output from the left kidney. POS: JUSTENH
[2017-11-25] MEDS: Piperacillin/Tazobactam 3.375 GM in Sodium Chloride 0.9% 100 ML IVPB SCH (18:13)
[2017-11-25] MEDS ORDERED: Ciprofloxacin 500 MG TAB PO SCH (20:00)
--- NOTE | 2017-11-25 20:06 | CON ---
DATE OF CONSULTATION: 11/25/2017 REFERRING: Family Medicine Service. REASON FOR CONSULT: Left hydronephrosis. HISTORY OF PRESENT ILLNESS: Ms. Santana is a 72-year-old female G0, P0, with past medical history of atrial fibrillation, status post ablation who was admitted to the medical service due to symptoms of malaise, nausea. She was worked up for infectious etiology, as she presented with white count of 19,000. Urine culture demonstrated Proteus, currently on Zosyn and vancomycin. Blood culture negative. Due to UA demonstrating component of UTI, renal ultrasound was obtained by primary service demonstrating a left hydronephrosis. CT was advised for definitive imaging. CT with and without IV contrast demonstrates left hydronephrosis due to proximal ureteral calculi, multiple left renal calculi. I did review the CT myself, there is a septated nonspecific region of the renal pelvis which was concerning for pyonephrosis. Therefore, I advised the primary service to have the patient proceed with left percutaneous nephrostomy tube for drainage. This has been obtained, I did speak with Dr. Iniguez, who put an 8 [place]ar[place]uan nephrostomy tube uneventfully. Approximately 30 mL of pus was drained. She is currently in the IMCU and appears to be stable. Cardiology consultation from Dr. Locke, services is at bedside. She denies prior history of kidney stones, has occasional incontinence. She denies prior history of UTIs. She lives alone in a private residence. No family nearby. PAST MEDICAL HISTORY: Atrial fibrillation, status post cardio ablation, obstructive sleep apnea. PAST SURGICAL HISTORY: Laparoscopic band converted to a gastric sleeve, cholecystectomy, thoracotomy due to complications of gastric sleeve surgery. FAMILY HISTORY: Noncontributory. ALLERGIES: No known drug allergies. REVIEW OF SYSTEMS: Ten point review of systems as above, otherwise noncontributory. PHYSICAL EXAMINATION: VITAL SIGNS: She was admitted 11/23/2017 with T-max of 101.4, T-current is 98.5. Last temperature is 11/24/2017 at 10:00, 100.4. She is hemodynamically stable. Blood pressure 107/78, heart rate currently 114, 95% on room air. I's and O's 1400 of urine output is approximately 2030 mL of serosanguineous discharge from the nephrostomy tube. HEENT: Grossly unremarkable. She appears somewhat flushed. HEART: Regular rate. LUNGS: Clear. Decreased inspiratory effort. ABDOMEN: Soft. No rigidity, no rebound. Left percutaneous nephrostomy tube was sutured to skin. I did aspirate with 30 mL demonstrating patency. Approximately 15 mL of serosanguineous output was drained with some component of pustular discharge; however, this is minimal. EXTREMITIES: No cyanosis, clubbing or edema. GENITOURINARY: Currently deferred as Cardiology is at bedside. PERTINENT LABS AND IMAGING: She presented with a white count of 19.7; 84 neutrophils, currently she has 14 white count, 86 neutrophils. This morning prior to nephrostomy tube placement, 21 bands. INR is 1.2, PTT 33. Renal function stable at 0.75. Lactic acid is 1.5. Urine culture demonstrates Proteus mirabilis, pansensitive except to Macrobid. Blood culture negative x2. Renal ultrasound demonstrates left hydronephrosis, mild, recommend CT. CT abdomen and pelvis with and without IV contrast. Small bilateral pleural effusion, distal esophagus is distended with debris within the lower chest, likely prior gastrectomy. Prominent left hydronephrosis with obstructing ureteral stone, 6 x 7 mm proximal ureter just distal to the UPJ, 3 kidney stones , largest in the mid pole. Per my review, 8-10 mm, lower pole 2-3 mm, third nidus 5 mm, Hounsfield unit of the stones over 1300, right kidney is grossly unremarkable. Sigmoid diverticulosis without diverticulitis. IMPRESSION/PLAN: Ms. Santana is a 72-year-old female with history of atrial fibrillation, status post ablation, admitted for left Proteus pyonephrosis with systemic inflammatory response syndrome as her blood culture is negative. Recommend ongoing evaluation in IMCU. The patient needs to be monitored for decompensation. I do expect the patient to improve as she has been diverted with nephrostomy tube. I have informed Cardiology service at bedside a cardiac clearance will need to be required for further surgical intervention at a later date as she will require ureteroscopy, laser lithotripsy, stent placement. Due to lack of social support, and her deconditioned status due to recent admission , comorbidities, and the fact that she will be discharged with nephrostomy tube , social case management consultation is advised for placement. I also ordered Infectious Disease consult as she has significant pyonephrosis. Based on sensitivity, quinolones may be sufficient; however, we will ask Dr. Mancilla for assistance. I do recommend percutaneous nephrostomy tube at minimum 2 weeks, in which repeat urine culture will be obtained. If culture negative, we will proceed with elective ureteroscopy, laser lithotripsy, stent placement. Informed patient, questions encouraged. We will follow along with on this admission. Continue Zosyn for now. May discontinue vancomycin based on sensitivity. MTDD
[2017-11-25] MEDS ORDERED: Vancomycin HCl 1 GM in Premix Bag 1 BAG IVPB SCH (21:00)
[2017-11-25] MEDS ORDERED: Vancomycin HCl 1 GM in Sodium Chloride 0.9% 250 ML 250 ML IVPB SCH (21:00)
[2017-11-25] MEDS: Acetaminophen 325 MG TAB PO PRN (21:53)
--- NOTE | 2017-11-25 23:48 | EKG ---
Test Reason : Blood Pressure : / mmHG Vent. Rate : 093 BPM Atrial Rate : 394 BPM P-R Int : 000 ms QRS Dur : 108 ms QT Int : 332 ms P-R-T Axes : 000 -27 112 degrees QTc Int : 412 ms Atrial fibrillation Cannot rule out Anterior infarct (cited on or before 28-MAR-2017) Abnormal ECG When compared with ECG of 24-NOV-2017 00:02, Atrial fibrillation has replaced Sinus rhythm Vent. rate has decreased BY 53 BPM Questionable change in initial forces of Lateral leads Non-specific change in ST segment in Anterior leads ST no longer depressed in Lateral leads Nonspecific T wave abnormality has replaced inverted T waves in Lateral leads Confirmed by TARAS MARTINEZ, DR. Le ([id number]) on 11/25/2017 11:48:39 PM Referred By: SILVINA Confirmed By:DR. Rey GRAJEDA MD
--- NOTE | 2017-11-26 01:34 | CON ---
DATE OF CONSULTATION: 11/25/2017 ELECTROPHYSIOLOGY CONSULTATION REPORT REFERRING PHYSICIAN: Dr. Jerome Woodward, [facility] Practice Residency Service and Dr. Erik Shaikh. I am seeing Ms. Santana at our [facility] step down ICU as an electrophysiology cosmetic consultant. Her problems are: 1. Atrial arrhythmias. 1A. Prior history of longstanding persistent atrial fibrillation. Status post pulmonary venous isol ation/left atrial ablation, extensive left atrial ablation procedure on 03/27/2017. 1B. Recurrent atypical flutter, not responding to flecainide, but eventually she maintained sinus rh ythm with Multaq. 1C. Multaq and Eliquis stopped due to no recurrent atrial fibrillation in October. 1D. Now with recurrent atypical atrial flutter with rapid AV conduction, 2:1 conduction on current a dmission. 2. History of normal LV systolic function, ejection fraction 55% in the past. 3. History of obstructive sleep apnea. 4. History of prior gastric sleeve surgery complicated with pleural effusion and pleural decorticati on procedure was done in the past. 5. Elevated BMI. 6. Current admission with UTI and kidney stones requiring abscess and drain. ALLERGIES: None noted. MEDICATIONS: Prior to admission included Celecoxib, aspirin and multi-capsule bariatric vitamins. SUBJECTIVE: Ms. Santana is here with urosepsis. She had nausea, vomiting which become intractable. She had increasing weakness and fatigue, came to the ER. She had marginal blood pressure. She was f ound to be in urosepsis. Urology evaluated her, found kidney stones based on abnormal CT, as well as hydronephrosis. Eventually, a CT-guided PCN tube placement was performed on the left side. Hence t hat which was not restarted. She is on low dose Lovenox. She currently has no stroke-like symptoms or other bleeding issues. No neurological deficits. No fever, chills, cough. She is on antibiotics . She is feeling better. Continues in atrial fibrillation, noted that her heart rates are better co ntrolled at 110 beats per minute range. She is also feeling better with the antibiotics and a drain and her hydronephrosis is resolving. The respiratory system was otherwise unremarkable. PAST MEDICAL HISTORY: As above. SOCIAL HISTORY: Patient denies smoking, ETOH or drug abuse. FAMILY HISTORY: Noncontributory. OBJECTIVE: VITAL SIGNS: Blood pressure is 107/78, heart rate 114, respiration rate 16, temperature 98.5 degrees Fahrenheit. GENERAL: Alert and oriented woman in no apparent distress. NECK: Supple. Jugular veins are distended. CHEST: Coarse without crackles. CARDIAC: Heart sounds are irregularly irregular. S1, S2, variable. No murmur or gallop. ABDOMEN: Benign. Bowel sounds positive. EXTREMITIES: Lower extremities without edema, clubbing or cyanosis. Left-sided PCN drain is in plac e. DATABASE: EKG is reviewed revealing an atypical flutter with variable AV conduction at 117 beats per minute, initially on 11/23/2017. Subsequent strips do reveal 2:1 AV conduction at times. LABORATORY DATA: White count 14.4, hemoglobin 12.6, platelet count is 513. Sodium 136, potassium 3. 4, BUN is 18, creatinine 0.75. INR is 1.2. Microbiology shows a Proteus mirabilis in the urine cult ure. Blood cultures are negative x2 for 48 hours. ASSESSMENT AND PLAN: Ms. Santana is a pleasant 72-year-old woman with prior history of normal left ve ntricular function, weight loss surgery, obstructive sleep apnea and persistent atrial fibrillation w hich underwent an extensive left atrial ablation procedure, pulmonary venous isolation, posterior wal l, coronary sinus ablation as well was performed by Dr. Mcneil. She had recurrence of atypical atria l flutter, was cardioverted and then it was suppressed with Multaq. The Multaq was stopped and event ually she had negative monitor and Eliquis also stopped about a month ago. Now, she is admitted with urosepsis and she developed a recurrent atypical atrial flutter. My plan with atrial fibrillation/flutter, likely would require re-anticoagulation, her EMMY risk scor e is low about 2 for age, gender only. Nevertheless, once Urology agrees, she should be tried on pos sibly Eliquis versus Coumadin. If that is not feasible while drain is in place, I would prefer considering a AILIN-guided cardioversio n for her understanding, still potential recurrence of thromboembolism even after the cardioversion i n sinus rhythm. At that point, we could consider pacing and antiarrhythmic agents. This could be po ssibly propafenone versus with trying Multaq. We will appreciate some further input from the Urology service in this regard about the potential for restarting anticoagulation and atrial fibrillation. For now, she is recovering from the sepsis and drain and eventually she might go to a rehab facility and hopefully, can get these arranged prior to that. We will follow with you. Thank you for the consult.
[2017-11-26] MEDS: Piperacillin/Tazobactam 3.375 GM in Sodium Chloride 0.9% 100 ML IVPB SCH ×4 (02:07→17:50)
[2017-11-26 06:05] LABS: #Eosinphils 0.1 thou/uL (0.0-0.7); #Lymphocytes 0.8 thou/uL (1.20-3.40); #Monocytes 0.9 thou/uL (0.11-0.59); %Basophils 0.1 % (0.0-1.0); %Eosinophils 0.7 % (0.0-10.0); %Lymphocytes 6.7 % (21.0-51.0); %Monocytes 7.9 % (0.0-10.0); %Neutrophils 84.6 % (42.0-75.0); Hemoglobin 11.3 g/dL (12.0-16.0); Mean Corpuscular HGB CONC 34.5 g/dL (32.0-36.0); Mean Corpuscular Hemoglobin 30.5 pg (27.0-31.0); Mean Corpuscular Volume 88.7 fl (81.0-99.0); Platelet Count 450 thou/uL (130-400); RBC Distribution Width 12.3 % (11.5-14.5); White Blood Cell (WBC) Count 11.8 thou/uL (4.8-10.8)
[2017-11-26 06:15] LABS: Anion Gap 7 mmol/L (10-20); BUN (Urea Nitrogen) 14 mg/dL (9.8-20.1); Calc. Creatinine Clearance 92 mL/min (70-130); Calcium 7.4 mg/dL (7.8-10.44); Carbon Dioxide 23 mmol/L (23-31); Chloride 109 mmol/L (98-107); Estimated GFR-MDRD 79; Glucose 77 mg/dL (83-110); Potassium 4.3 mmol/L (3.5-5.1); Sodium 135 mmol/L (136-145)
--- NOTE | 2017-11-26 06:56 | PDOC.FM ---
- Subjective Subjective: Pt underwent emergent nephrostomy tube placement yesterday afternoon. She did well overnight. VSS. No complaints this am. - Objective MAR Reviewed: Yes Vital Signs & Weight: Vital Signs (12 hours) Temp Pulse Resp BP BP Pulse Ox 11/26/17 03:00 97.9 F 94 18 121/72 96 11/25/17 23:00 99.3 F 108 H 20 93/62 95 11/25/17 22:00 119 H 112/84 11/25/17 21:00 113 H 119/77 11/25/17 20:00 98.4 F 112 H 20 106/76 11/25/17 19:00 98.4 F 112 H 20 130/76 94 L Weight Weight 83.574 kg I&O: 11/24/17 11/25/17 11/26/17 06:59 06:59 06:59 Intake Total 950 3420 2086 Output Total 550 1400 1625 Balance 400 2019 46 Result Diagrams: 11/26/17 04:42 11/26/17 04:42 <Kyra Bowman - Last Filed: 11/26/17 12:23> - Objective Vital Signs & Weight: Vital Signs (12 hours) Temp Pulse Pulse Pulse Resp BP BP 11/26/17 11:16 97.6 F 98 16 11/26/17 09:10 82 80 117/73 112/81 11/26/17 08:00 97.9 F 122 H 23 H 11/26/17 07:39 97.9 F 122 H 23 H BP Pulse Ox 11/26/17 11:16 103/68 11/26/17 09:10 11/26/17 08:00 96 11/26/17 07:39 123/76 Weight Weight 83.574 kg I&O: 11/25/17 11/26/17 11/27/17 06:59 06:59 06:59 Intake Total 3420 2086 Output Total 1400 1625 Balance 20191 Result Diagrams: 11/26/17 04:42 11/26/17 04:42 <Christiano Tillman - Last Filed: 11/26/17 17:39> Phys Exam - Physical Examination Constitutional: NAD HEENT: PERRLA, moist MMs Respiratory: no wheezing, no rales, no rhonchi, clear to auscultation bilateral Cardiovascular: no significant murmur irregularly irregular Gastrointestinal: soft, non-tender, no distention Musculoskeletal: no edema, pulses present Neurological: non-focal, normal sensation Psychiatric: normal affect, A&O x 3 Skin: no rash, normal turgor <Kyra Bowman - Last Filed: 11/26/17 12:23> Dx/Plan (1) Sepsis Code(s): A41.9 - SEPSIS, UNSPECIFIED ORGANISM Status: Acute (2) Obstructive uropathy Code(s): N13.9 - OBSTRUCTIVE AND REFLUX UROPATHY, UNSPECIFIED Status: Acute (3) Perinephric abscess Code(s): N15.1 - RENAL AND PERINEPHRIC ABSCESS Status: Acute (4) Pyelonephritis Code(s): N12 - TUBULO-INTERSTITIAL NEPHRITIS, NOT SPCF ACUTE OR CHRONIC Status: Acute (5) Acute cystitis Code(s): N30.00 - ACUTE CYSTITIS WITHOUT HEMATURIA Status: Acute (6) Atrial fibrillation Code(s): I48.91 - UNSPECIFIED ATRIAL FIBRILLATION Status: Acute (7) RAMANDEEP (obstructive sleep apnea) Code(s): G47.33 - OBSTRUCTIVE SLEEP APNEA (ADULT) (PEDIATRIC) Status: Chronic - Plan Plan: 72 yo f admitted for severe sepsis 2/2 acute complicated cystitis. Obstructed Uropathy with severe hydronephrosis, pyelonephritis, and probable perinephric absces- -Renal US showed severe hydronephrosis of the left kidney; follow-up abdominal CT showed an 8mm obstructing stone with surrounding severe hydronephrosis and fat stranding worrisome for a perinephric abscess. Urology consulted who recommended emergent nephrostomy tube placement yesterday. -Pt currently on zosyn. Will continue for now and follow-up with recommendations from Dr. Mancilla on duration of treatment and recommendation on changing to an oral agent vs IV. Sepsis 2/2 above - VSS. Afebrile overnight. See above Atrial fibrillation - s/p ablation and cardioversion earlier in the year; was taken off of all anti- arrhythmics and anticoagulation in September by Dr. Locke. - pt currently in afib. Dr. Locke recommends anticoagulation once urology gives the okay to start since the pt just received a nephrostomy tube yesterday. - Pt will likely be started on warfarin or pradaxa. An agent that has a reversal would be ideal. If started on warfarin, pt will need to be treated for a few days before she can receive cardioversion. Will trend INR. Appreciate recommendations from cardiology. - On baby ASA daily Elevated BNP - Around 400; no baseline lab value to compare - Echo completed, showed EF 50-55%, moderate MR, AR. RAMANDEEP -On home CPAP; will continue while in hospital -Will give nebs prn Code status: Full DVT ppx: SCDs <Kyra Bowman - Last Filed: 11/26/17 12:23> Attending Addendum - Attending Addendum Date/Time: 11/26/17 1688 I personally evaluated the patient and discussed the management with Dr. Bowman I agree with the History, Examination, Assessment and Plan documented above with any addition or exceptions noted below. Nephrostomy tube draining well (clear), appreciate Urology and Cardiology recommendations will have ID consult and start evaluation for SNF, <Christiano Tillman - Last Filed: 11/26/17 17:39>
--- NOTE | 2017-11-26 07:49 | PRG ---
DATE OF SERVICE: 11/26/2017 SUBJECTIVE: The patient feeling better, denies nausea, vomiting, or chills. OBJECTIVE: VITAL SIGNS: Stable, 97.9, 94, 18, 96%, 121/72. The patient has been afebrile for 24 hours. ABDOMEN: Soft, nontender, nondistended. Left percutaneous nephrostomy tube is to be addressed. Urine output from the nephrostomy tube is clear, pink tinged. ABDOMEN: Soft, nontender, nondistended. PERTINENT LABORATORY DATA: White count has decreased to 11.8, hemoglobin 11.3, platelets 450, resolution of bandemia. Creatinine 0.7. Cultures: Urine culture demonstrates Proteus sensitive to Zosyn and quinolones. Blood culture negative. IMPRESSION AND PLAN: Ms. Santana is a 72-year-old female admitted for, 1. Left Klebsiella pyonephrosis due to ureteral calculi with hydronephrosis and multiple renal calculi. She underwent emergent left percutaneous nephrostomy tube by Dr. Iniguez yesterday. Subsequently, her labs and clinical status has improved. She will continue Zosyn for now. Due to lack of social and family assist, I did put a case management consult for rehab halfway facility evaluation; this is pending. Infectious Disease consult has been obtained regarding course of antibiotic therapy. From a urologic perspective, it would be prudent to provide IV antibiotics for a minimum 2 weeks given her presentation of pyonephrosis. If clinical decompensation, repeat CT is warranted. I do plan on proceeding with ureteroscopy, laser lithotripsy, nephrostomy tube removal, ureteral stent placement in the next 3-4 weeks. 2. History of atrial fibrillation/atrial flutter, anticoagulation currently on hold. I do not recommend anticoagulation now, as she recently underwent percutaneous nephrostomy tube. If urine output remains clear in the next 24 hours, anticoagulation may be restarted. As I am deferring her surgical intervention for a few weeks, I do prefer anticoagulation with medical therapy that can be quickly reversed should she have issues with gross hematuria from nephrostomy tube. Cardiac clearance is warranted for general anesthesia in a few weeks. Ideally, anticoagulation will need to be held prior to ureteroscopy and laser lithotripsy. [facility]
[2017-11-26] MEDS: Enoxaparin Sodium 40 MG/0.4 ML SYRINGE SC SCH (08:11)
[2017-11-26 10:10] LABS: Critical Call w/ Read Back 474387
--- NOTE | 2017-11-26 12:35 | CON ---
DATE OF CONSULTATION: 11/26/2017 REASON FOR CONSULTATION: Urosepsis. HISTORY OF PRESENT ILLNESS: A 72-year-old patient who has a history of atrial fibrillation, prior lap band with conversion to sleeve gastrectomy in the past and recent ablation of supraventricular tachycardia who has developed a low grade fever, nausea, vomiting, and back pain, marked decrease in oral intake. The patient was seen at Urgent Care on the day of admission and she was hypotensive; therefore, was brought to the emergency room and admitted. On arrival, her BP was 90/40 and pulse 90. The exam showed no major distress. She was afebrile. Abdomen was soft. An abdomen and pelvis CT scan was completed, which showed hydronephrosis, left side with an obstructing proximal left ureter stone measuring 6 mm x 7 mm, several intrarenal calculi seen on the left side. There was evidence of stranding in the perinephric fat adjacent to the left kidney. Also, she had distention of the distal esophagus and large amount of debris in the lower chest. No normal stomach was seen. The patient underwent placement of a percutaneous nephrostomy tube by Radiology. Currently , she is sitting by the bedside in the [facility]. She is awake, oriented. Denies headaches, no visual symptoms, sore throat, odynophagia, dysphagia, no dyspnea, no chest pain, no cough, no abdominal pain, a little bit of back pain in the left side. She is voiding spontaneously. No joint symptoms. No other skin disorder. PAST MEDICAL AND SURGICAL HISTORY: Includes prior lap band converted to a sleeve gastrectomy in the past, atrial fibrillation with ablation and cardioversion, prior cholecystectomy and complications of gastric sleeve surgery which required thoracotomy. FAMILY HISTORY: Noncontributory. CURRENT MEDICATIONS: DuoNeb, aspirin, Lovenox, Zofran, Zosyn. PHYSICAL EXAMINATION: VITAL SIGNS: T-max 101.4, she has been afebrile for the past 2 days. Other vital signs are normal. O2 sats 96% on room air. SKIN: Shows a peripheral IV access and a percutaneous nephrostomy tube in left side with dark orange urine in the bag. Does not have a Garcia catheter. No lymphadenopathy. HEENT: Noncontributory. NECK: Supple. LUNGS: With symmetric clear breath sounds. HEART: S1, S2 with regular rate without obvious murmurs or S3. ABDOMEN: Soft, not distended or tender. No ascites. No bladder distention. EXTREMITIES: She is able to move her extremities equally. Pulses 1+ in dorsalis pedis. NEUROLOGIC: Cognitive function appears to be intact. LABORATORY DATA: White cell count is down from 19-11, hemoglobin 11.3, platelets 450, which is stable from admission, predominance of mature neutrophils. The bands went up to 21 and now they are down. INR 1.2 and chemistry with a creatinine initially at 0.72, sodium 135, bilirubin, AST and ALT and alkaline phosphatase normal. BNP 411, albumin 4.6 and TSH 0.377. Urinalysis with 21-50 WBCs. Microbiology with Proteus mirabilis with resistance to nitrofurantoin and susceptibility to all the remainder antimicrobials. Two sets of blood cultures thus far no growth. ASSESSMENT: 1. History of lap band with sleeve gastrectomy. 2. Left hydronephrosis secondary to obstruction by stone and evidence of pyelonephritis/pyonephrosis. The patient has had drainage with a percutaneous nephrostomy and has improved markedly. She also has those findings in the CT, which showed debris in the esophagus and dilated esophagus and likely area of stenosis there. DISCUSSION: Patient will continue with likely eventual conversion to oral quinolone and I would continue at least for 4 weeks. In the intervening period she would be a candidate for placement of a stent and lithotripsy as described by Dr. Breaux. She probably will need a GI evaluation with endoscopy to find out about this area of possible esophageal stenosis. As in every patient with sleeve gastrectomy, I would recommend checking micronutrients including thiamine, vitamin C, vitamin A and all the B vitamins, since they frequently, will develop micronutrient deficiency and vitamin deficiencies. When ready for discharge planning, would convert to oral quinolone for 4 weeks. In the intervening period, she will have the stent placed and lithotripsy and the percutaneous nephrostomy removed. Complications of the percutaneous nephrostomy including displacement, colonization by resistant, pathogens and so on, has been discussed with the patient. KATARINA
[2017-11-26 15:19] LABS: Iron 30 ug/dL (50-170); Iron Binding Capacity, Total 154 mcg/dL (265-497)
[2017-11-26 16:07] LABS: Ferritin 573.07 ng/mL (10-291); Vitamin B12 Greater than 2000 pg/mL (211-911); Vitamin D, 25 Hydroxy 45.8 ng/ml (> 30.0)
[2017-11-26] MEDS: Acetaminophen 325 MG TAB PO PRN (20:33)
--- NOTE | 2017-11-26 20:57 | PRG ---
DATE OF SERVICE: 11/26/2017 ELECTROPHYSIOLOGY FOLLOWUP REPORT SUBJECTIVE: Ms. Santana seems to be doing well, septic symptoms resolved. At this time point, she is not complaining of major symptoms. OBJECTIVE DATA: VITAL SIGNS: Blood pressure is 112/81, heart rate 98, respiration rate 16, temperature 97.6 degrees Fahrenheit. GENERAL: Alert and oriented woman in no apparent distress. NECK: Supple. Jugular veins not distended. CHEST: Coarse without crackles. CARDIOVASCULAR: Heart sounds are irregularly irregular. No murmur or gallop. ABDOMEN: Benign. Bowel sounds positive. EXTREMITIES: Lower extremities without edema, clubbing or cyanosis. DATABASE: The telemetry strips reveal continued atrial fibrillation with somewhat suboptimal rate co ntrol. The patient is on low dose Lovenox. ASSESSMENT AND PLAN: Ms. Santana is a pleasant 72-year-old woman with history of persistent atrial fi brillation who underwent a pulmonary venous isolation procedure this year and done well so much as he r Multaq and anticoagulation was stopped; hence, no recurrence. Now, she returns with sepsis and rec urrence of atrial fibrillation, also noted rapid rates. She underwent a PCN drain placement which now is preventing us to restart anticoagulation. Urology c onsultant was contacted and their plan is to consider anticoagulation tomorrow. At this point, it would be reasonable to consider Pradaxa versus Coumadin anticoagulant. Likely Prad axa will be quicker to achieve the desired effect. Fixing on twice a day could be the appropriate do se. AILIN-guided cardioversion could be also performed prior to discharge. Rate control will be initiated with low dose diltiazem in the interim. After cardioversion, consider adding antiarrhythmic agents l mary anne possibly propafenone with excessive bradycardia seen with Multaq.
[2017-11-27] MEDS: Piperacillin/Tazobactam 3.375 GM in Sodium Chloride 0.9% 100 ML IVPB SCH ×4 (00:03→20:23)
[2017-11-27 07:08] LABS: #Eosinphils 0.1 thou/uL (0.0-0.7); #Lymphocytes 0.8 thou/uL (1.20-3.40); #Monocytes 0.6 thou/uL (0.11-0.59); #Neutrophils 7.8 thou/uL (1.40-6.50); %Basophils 0.2 % (0.0-1.0); %Lymphocytes 8.1 % (21.0-51.0); %Monocytes 6.8 % (0.0-10.0); Hemoglobin 11.4 g/dL (12.0-16.0); Mean Corpuscular HGB CONC 32.6 g/dL (32.0-36.0); Mean Corpuscular Hemoglobin 28.7 pg (27.0-31.0); Mean Platelet Volume 6.3 fL (7.4-10.4); Platelet Count 544 thou/uL (130-400); RBC Distribution Width 12.3 % (11.5-14.5); Red Blood Cell (RBC) Count 3.96 mill/uL (4.20-5.40); White Blood Cell (WBC) Count 9.3 thou/uL (4.8-10.8)
[2017-11-27 07:24] LABS: Anion Gap 9 mmol/L (10-20); BUN (Urea Nitrogen) 14 mg/dL (9.8-20.1); Calc. Creatinine Clearance 87 mL/min (70-130); Calcium 7.6 mg/dL (7.8-10.44); Carbon Dioxide 26 mmol/L (23-31); Chloride 108 mmol/L (98-107); Estimated GFR-MDRD 75; Glucose 72 mg/dL (83-110); Potassium 3.7 mmol/L (3.5-5.1); Sodium 139 mmol/L (136-145)
[2017-11-27] MEDS: Enoxaparin Sodium 40 MG/0.4 ML SYRINGE SC SCH ×2 (08:42→09:56)
--- NOTE | 2017-11-27 08:55 | PDOC.CTH ---
<MoconstanzaMary Jane alejandro - Last Filed: 11/27/17 08:48> Cardiology Progress Note - Subjective EP progress note: Patient seen and evaluated. No new cardiac concerns or complaints overnight. Denies heart racing, palpitations, chest pain, pressure, dizziness, or passing out. Positive for weakness, fatigue, and mild pain. - Objective Vital Signs Temp Pulse Resp BP BP Pulse Ox 11/27/17 08:42 116 H 11/27/17 07:40 99.2 F 116 H 18 96 11/27/17 07:28 99.2 F 116 H 18 112/83 96 11/27/17 04:50 97.8 F 106 H 20 109/76 96 11/26/17 23:50 97.8 F 106 H 18 118/73 96 Weight 183 lb 8 oz 11/26/17 11/27/17 11/28/17 06:59 06:59 06:59 Intake Total 2086 1230 Output Total 1625 1475 Balance 461 -245 - Physical Examination General/Neuro: alert & oriented x3, NAD Neck: no JVD present Lungs: CTA, unlabored respirations Heart: other: (irregularly irregular, rapid) Abdomen: soft - Telemetry Telemetry Rhythm: atrial flutter - Labs Result Diagrams: 11/27/17 07:00 11/27/17 07:00 Troponin/CKMB CK-MB (CK-2) 0.5 ng/mL (0-6.6) 11/23/17 10:08 Troponin I Less than 0.010 ng/mL (< 0.028) 11/23/17 10:08 - Assessment/Plan 1. Atrial flutter with RVR, rates remain elevated so adding diltiazem this AM. AILIN/CV tomorrow AM at [address] Parnell. May need AAD post CV, Rythmol 150mg TID. Did not tolerate flecainide in the past and was junctional (50s) on multaq. 2. Oral anticoagulation, starting pradaxa 150mg BID today. Monitor for bleeding , reversal agent available if acute bleeding occurs. 3. Left hydronephrosis with perc. nephrostomy in place. Plan for stent and lithotripsy once infection resolved, likely 4-6 weeks per urology. <Josiah Locke - Last Filed: 11/27/17 10:01> Cardiology Progress Note - Objective Vital Signs Temp Pulse Resp BP BP BP BP 11/27/17 08:42 116 H 11/27/17 08:16 102/78 107/73 11/27/17 07:40 99.2 F 116 H 18 11/27/17 07:28 99.2 F 116 H 18 112/83 11/27/17 04:50 97.8 F 106 H 20 109/76 11/26/17 23:50 97.8 F 106 H 18 118/73 Pulse Ox 11/27/17 08:42 11/27/17 08:16 11/27/17 07:40 96 11/27/17 07:28 96 11/27/17 04:50 96 11/26/17 23:50 96 Weight 183 lb 8 oz 11/26/17 11/27/17 11/28/17 06:59 06:59 06:59 Intake Total 2086 1230 Output Total 1625 1475 Balance 461 -245 - Labs Result Diagrams: 11/27/17 07:00 11/27/17 07:00 Troponin/CKMB CK-MB (CK-2) 0.5 ng/mL (0-6.6) 11/23/17 10:08 Troponin I Less than 0.010 ng/mL (< 0.028) 11/23/17 10:08 Attending Addendum - Attending Addendum Date/Time: 11/27/17 1000 I personally evaluated the patient and discussed the management with Ms Melton. I agree with the History, Examination, Assessment and Plan documented above with any addition or exceptions noted below.
--- NOTE | 2017-11-27 09:04 | PRG ---
DATE OF SERVICE: 11/26/2017 SERVICE: Pulmonary Medicine. INTERVAL HISTORY: The patient is doing fine from a respiratory standpoint. She is gone back into a regular rhythm. It is not clear whether or not it is in atrial flutter, or sinus tachycardia. I fav or the latter since her rate is in the 120s. Yesterday, an ultrasound suggested hydronephrosis. Thi s was confirmed on a CT scan. She subsequently underwent a percutaneous nephrostomy drain placement. PHYSICAL EXAMINATION: VITAL SIGNS: Afebrile, pulse 98, blood pressure 103/68, respirations 16, saturation 97% on room air. GENERAL: The patient is awake, alert, no apparent distress. LUNGS: Excellent air entry with no prolonged expiratory phase, wheezing, rhonchi or crackles. HEART: Normal rate, regular. ABDOMEN: Soft, nontender, nondistended. Bowel sounds are positive. MUSCULOSKELETAL: No cyanosis or clubbing. There is no pitting in the bilateral lower extremities. NEUROLOGIC: Grossly nonfocal. LABORATORY DATA: WBC 11.8, hemoglobin 11.3, platelets 450,000. Magnesium 1.6. Urine culture is paddy wing pansensitive Proteus. Blood cultures x4 are unremarkable. IMAGIN. Ultrasound of the kidney demonstrates left hydroureter. 2. CT of the abdomen and pelvis demonstrates some stranding around the left kidney. There is also a left ureteral stone measuring 6-7 mm with hydronephrosis present there. ASSESSMENT: 1. Sepsis without end organ damage. 2. Pyelonephritis with obstructing stone, status post nephrostomy tube, postop day #1. 3. Obstructive sleep apnea. 4. Atrial fibrillation, paroxysmal. DISCUSSION AND PLAN: The patient is stable for transition out of the [facility]. I will continue to follo w while she remains in this place. I will continue to follow along.
--- NOTE | 2017-11-27 09:05 | PDOC.FM ---
- Subjective Subjective: No acute complaints. Discussed plan for dilt and pradaxa initiation today and cardioversion tomorrow. Pt understood. No concerns. - Objective MAR Reviewed: Yes Vital Signs & Weight: Vital Signs (12 hours) Temp Pulse Resp BP BP Pulse Ox 11/27/17 08:42 116 H 11/27/17 07:40 99.2 F 116 H 18 96 11/27/17 07:28 99.2 F 116 H 18 112/83 96 11/27/17 04:50 97.8 F 106 H 20 109/76 96 11/26/17 23:50 97.8 F 106 H 18 118/73 96 Weight Weight 83.234 kg I&O: 11/26/17 11/27/17 11/28/17 06:59 06:59 06:59 Intake Total 2085 1230 Output Total 1625 1475 Balance 461 -245 Result Diagrams: 11/27/17 07:00 11/27/17 07:00 <Kyra Bowman - Last Filed: 11/27/17 09:11> - Objective Vital Signs & Weight: Vital Signs (12 hours) Temp Pulse Resp BP BP BP Pulse Ox 11/27/17 11:02 98.8 F 106 H 16 97/72 97 11/27/17 08:42 116 H 11/27/17 08:16 102/78 107/73 11/27/17 07:40 99.2 F 116 H 18 96 11/27/17 07:28 99.2 F 116 H 18 112/83 96 11/27/17 04:50 97.8 F 106 H 20 109/76 96 Weight Weight 83.234 kg I&O: 11/26/17 11/27/17 11/28/17 06:59 06:59 06:59 Intake Total 6 1230 Output Total 1625 1475 Balance 461 -245 Result Diagrams: 11/27/17 07:00 11/27/17 07:00 <Christiano Tillman - Last Filed: 11/27/17 13:17> Phys Exam - Physical Examination Constitutional: NAD HEENT: PERRLA, moist MMs Neck: no nodes, no JVD Respiratory: no wheezing, no rales, clear to auscultation bilateral Cardiovascular: no significant murmur irregularly irregular Gastrointestinal: soft, non-tender, no distention, positive bowel sounds drain has yellow clear fluid; no blood Musculoskeletal: no edema Neurological: non-focal, normal sensation Psychiatric: normal affect, A&O x 3 Skin: no rash, cap refill <2 seconds <Kyra Bowman - Last Filed: 11/27/17 09:11> Dx/Plan (1) Sepsis Code(s): A41.9 - SEPSIS, UNSPECIFIED ORGANISM Status: Acute (2) Obstructive uropathy Code(s): N13.9 - OBSTRUCTIVE AND REFLUX UROPATHY, UNSPECIFIED Status: Acute (3) Perinephric abscess Code(s): N15.1 - RENAL AND PERINEPHRIC ABSCESS Status: Acute (4) Pyelonephritis Code(s): N12 - TUBULO-INTERSTITIAL NEPHRITIS, NOT SPCF ACUTE OR CHRONIC Status: Acute (5) Acute cystitis Code(s): N30.00 - ACUTE CYSTITIS WITHOUT HEMATURIA Status: Acute (6) Atrial fibrillation Code(s): I48.91 - UNSPECIFIED ATRIAL FIBRILLATION Status: Acute (7) RAMANDEEP (obstructive sleep apnea) Code(s): G47.33 - OBSTRUCTIVE SLEEP APNEA (ADULT) (PEDIATRIC) Status: Chronic (8) Status post gastric surgery Code(s): Z98.890 - OTHER SPECIFIED POSTPROCEDURAL STATES Status: Acute - Plan Plan: 72 yo f admitted for severe sepsis 2/2 acute complicated cystitis. Obstructed Uropathy with severe hydronephrosis, pyelonephritis, and probable perinephric absces- -Renal US showed severe hydronephrosis of the left kidney; follow-up abdominal CT showed an 8mm obstructing stone with surrounding severe hydronephrosis and fat stranding worrisome for a perinephric abscess. Urology consulted who recommended emergent nephrostomy tube placement 0n 11/25 -nephrostomy tube draining yellow/clear fluid -Pt currently on zosyn. Will continue for now. PT can be transitioned to an oral floroquinolone upon dc to inpatient rehab. Sepsis 2/2 above - VSS. Afebrile overnight. See above Atrial fibrillation - s/p ablation and cardioversion earlier in the year; was taken off of all anti- arrhythmics and anticoagulation in September by Dr. Locke. - pt currently in afib. -Dr. Locke recommends Pradaxa bid today and cardioversion tomorrow. He also recommends diltiazem today to help with rate control. - On baby ASA daily Esophageal Distention, s/p gastric sleeve surgery- -Abdominal CT notes that the distal esophagus is distended. This is likely sequela from her prior gastric sleeve surgery. We will assess for vitamin deficiencies per Dr. Mancilla recommendations. Elevated BNP - Around 400; no baseline lab value to compare - Echo completed, showed EF 50-55%, moderate MR, AR. RAMANDEEP -On home CPAP; will continue while in hospital -Will give nebs prn Code status: Full DVT ppx: SCDs <Kyra Bowman - Last Filed: 11/27/17 09:11> Attending Addendum - Attending Addendum Date/Time: 11/27/17 4812 I personally evaluated the patient and discussed the management with Dr. Mora I agree with the History, Examination, Assessment and Plan documented above with any addition or exceptions noted below.s/p nephrostomy placement with clinical improvement urine clear to nephrostomy bag. Appreciate Cardiology,Urology and Infectious Disease recommendation. Patient for po anticoagulation Pradaxa and rate RX diltiazem today anticipate Cardioversion tomorrow. Given Proteus mirabilis infection associated with obstructive pylelonephrits conversion to po quinolone for 28 days per ID rec definitive care per Urology and rehab in SNF. <Christiano Tillman - Last Filed: 11/27/17 13:17>
[2017-11-27] MEDS ORDERED: Dabigatran 150 mg Capsule PO SCH (10:15)
[2017-11-27] MEDS ORDERED: Potassium Chloride 20 MEQ TAB PO SCH (10:45)
[2017-11-27] MEDS ORDERED: Magnesium Sulfate 4 GM in Sodium Chloride 0.9% 250 ML 250 ML IVPB SCH (11:00)
--- NOTE | 2017-11-27 11:07 | PRG ---
DATE OF SERVICE: 11/27/2017 SERVICE: Pulmonary Medicine. INTERVAL HISTORY: The patient still remains in the IMCU. She has been waiting on a telemetry bed for the past 3 days. She has no specific complaints today. She denies any current fevers, chills, nausea, vomiting, or chest discomfort. There were no overnight events. PHYSICAL EXAMINATION: VITAL SIGNS: Afebrile with a T-max of 99.2. Pulse 116, blood pressure 102/78, respirations 18, and saturation 96% on room air. GENERAL: Patient is awake, alert, in no apparent distress. LUNGS: Excellent air entry. There is no prolonged expiratory phase, wheezing, rhonchi, or crackles present. HEART: Normal rate, regular. ABDOMEN: Soft, nontender, nondistended. Bowel sounds are positive. MUSCULOSKELETAL: No cyanosis or clubbing. No pitting in the bilateral lower extremities. NEUROLOGIC: Grossly nonfocal. LABORATORY DATA: WBC 9.3, hemoglobin 11.4, platelets are 544,000. Basic metabolic profile and phosphorus are essentially unremarkable. Potassium 3.7, magnesium 1.6. Kidney aspirate is growing Proteus. Urine culture is growing Proteus. Blood cultures x4 unremarkable. ASSESSMENT: 1. Sepsis without end organ damage. 2. Pyelonephritis with obstructing stone, status post nephrostomy tube, postop day #2. 3. Obstructive sleep apnea. 4. Atrial fibrillation, paroxysmal. DISCUSSION AND PLAN: The patient remains stable for transition to the telemetry unit. At this point, she has no further requirements for inpatient Pulmonary or Critical Care opinion. As such, I will sign off. Please call if advanced respiratory interventions are required. KATARINA
--- NOTE | 2017-11-27 13:00 | PRG ---
DATE OF SERVICE: 11/27/2017 SUBJECTIVE: The patient is resting comfortably, denies nausea, vomiting, chills or abdominal pain. PHYSICAL EXAMINATION: VITAL SIGNS: Stable. She is afebrile, heart rate 106. I's and O's, nephrostomy tube output 600 mL clear, dilute urine. Left nephrostomy tube demonstrates minimal serosanguineous discharge, no active bleeding is appreciated. PERTINENT LABORATORY: Proteus urine culture, nephrostomy tube culture Proteus. Blood culture negative. White count has normalized to 9.3, hemoglobin 11.4, platelets 544. Renal function, creatinine 0.76. IMPRESSION AND PLAN: A 72-year-old female with history of left Klebsiella pyonephrosis with left ureteral calculi, hydronephrosis, multiple renal calculi. Status post percutaneous nephrostomy tube, doing well. The patient has started Pradaxa due to history of atrial fibrillation, plan cardioversion. Elective ureteroscopy, laser lithotripsy will be performed. Will need cardiac clearance, status post cardioversion. I appreciate Infectious Disease consult. KATARINA
[2017-11-27] MEDS: Dabigatran 150 mg Capsule PO SCH (20:23)
[2017-11-28] MEDS: Piperacillin/Tazobactam 3.375 GM in Sodium Chloride 0.9% 100 ML IVPB SCH ×3 (01:36→11:52)
[2017-11-28 04:57] LABS: #Eosinphils 0.1 thou/uL (0.0-0.7); #Lymphocytes 0.8 thou/uL (1.20-3.40); #Monocytes 0.7 thou/uL (0.11-0.59); #Neutrophils 7.5 thou/uL (1.40-6.50); %Basophils 0.4 % (0.0-1.0); %Eosinophils 1.1 % (0.0-10.0); %Lymphocytes 8.8 % (21.0-51.0); %Monocytes 7.4 % (0.0-10.0); %Neutrophils 82.3 % (42.0-75.0); Hemoglobin 10.9 g/dL (12.0-16.0); Mean Corpuscular HGB CONC 31.9 g/dL (32.0-36.0); Mean Corpuscular Hemoglobin 28.1 pg (27.0-31.0); Mean Platelet Volume 6.2 fL (7.4-10.4); Platelet Count 610 thou/uL (130-400); RBC Distribution Width 12.4 % (11.5-14.5); Red Blood Cell (RBC) Count 3.87 mill/uL (4.20-5.40); White Blood Cell (WBC) Count 9.1 thou/uL (4.8-10.8)
[2017-11-28 05:22] LABS: Anion Gap 10 mmol/L (10-20); BUN (Urea Nitrogen) 13 mg/dL (9.8-20.1); Calc. Creatinine Clearance 88 mL/min (70-130); Calcium 7.7 mg/dL (7.8-10.44); Carbon Dioxide 25 mmol/L (23-31); Chloride 106 mmol/L (98-107); Estimated GFR-MDRD 76; Glucose 70 mg/dL (83-110); Potassium 4.1 mmol/L (3.5-5.1); Sodium 137 mmol/L (136-145)
--- NOTE | 2017-11-28 08:09 | PRG ---
DATE OF SERVICE: 11/28/2017 SUBJECTIVE: The patient is resting comfortably, patient scheduled for cardioversion today. Per nurs ing staff, she is anticipated to be discharged to [facility] after cardioversio n. PHYSICAL EXAMINATION: VITAL SIGNS: Stable. GENITOURINARY: Nephrostomy tube with 600 mL of pink-tinged urine. Nephrostomy tube dressing in plac e, it is minimally saturated with serosanguineous fluid. ABDOMEN: Soft, nontender, nondistended. LABORATORY DATA: White count 9, hemoglobin 10, platelets 610, creatinine 0.7. Blood culture negativ e. Urine culture and nephrostomy tube culture does demonstrate Proteus, currently on Zosyn. IMPRESSION AND PLAN: Ms. Santana is a 72-year-old female with history of atrial fibrillation, admitte d for Klebsiella pyonephrosis. 1. Left ureteral calculi with hydronephrosis multiple left renal calculi status post percutaneous ne phrostomy tube. She has defervesced, with normalization of leukocytosis and urinary diversion with n ephrostomy tube. She will continue Zosyn while in house. I appreciate Infectious Disease consult. If patient is discharged to rehab today, please provide ciprofloxacin 500 mg one p.o. b.i.d. for 2-3 weeks. We will coordinate followup appointment with me to preop for elective ureteroscopy, laser lit hotripsy, stent placement, nephrostomy tube removal. Please provide clearance for me to proceed with elective ureteroscopy, laser lithotripsy.
[2017-11-28] MEDS ORDERED: Ascorbic Acid 500 mg Chewable Tablet PO SCH (09:00)
[2017-11-28] MEDS ORDERED: Ferrous Sulfate 325 MG TAB PO SCH (09:00)
--- NOTE | 2017-11-28 09:21 | PDOC.FM ---
Addendum entered and electronically signed by Kyra Bowman MD 11/28/17 13:49: Pt back from successful cardioversion. VSS PE: Gen: NAD Lungs: CTAB no w/r/r CV: NSR, no m/r/g, no edema Abd: soft nontender, nephrostomy draining yellow/clear fluid in bo drain Neuro: a&ox4, no focal deficits Plan: pt to be discharged to inpatient rehab with plan for lithotrypsy and stent placement in 2-3 weeks; pt will be discharged on PO Cipro 500mg BID for 3 weeks. Original Note: - Subjective Subjective: No acute events overnight. Patient down for cardioversion this am. VSS. - Objective MAR Reviewed: Yes Vital Signs & Weight: Vital Signs (12 hours) Temp Pulse Resp BP Pulse Ox 11/28/17 08:00 98.6 F 87 17 95 11/28/17 07:30 98.6 F 87 17 101/67 96 11/28/17 03:50 98.2 F 81 17 105/69 96 11/27/17 23:56 97.7 F 89 18 96/61 95 Weight Weight 83.143 kg I&O: 11/27/17 11/28/17 11/29/17 06:59 06:59 06:59 Intake Total 1230 1000 Output Total 1475 800 Balance -245 200 Result Diagrams: 11/28/17 04:50 11/28/17 04:50 <Kyra Bowman - Last Filed: 11/28/17 11:11> - Objective Vital Signs & Weight: Vital Signs (12 hours) Temp Pulse Resp BP Pulse Ox 11/28/17 11:43 87 11/28/17 08:00 98.6 F 87 17 95 11/28/17 07:30 98.6 F 87 17 101/67 96 11/28/17 03:50 98.2 F 81 17 105/69 96 Weight Weight 83.143 kg I&O: 11/27/17 11/28/17 11/29/17 06:59 06:59 06:59 Intake Total 1230 1000 Output Total 1475 800 Balance -245 200 Result Diagrams: 11/28/17 04:50 11/28/17 04:50 <Demetra Ortiz - Last Filed: 11/28/17 14:42> Dx/Plan (1) Sepsis Code(s): A41.9 - SEPSIS, UNSPECIFIED ORGANISM Status: Acute (2) Obstructive uropathy Code(s): N13.9 - OBSTRUCTIVE AND REFLUX UROPATHY, UNSPECIFIED Status: Acute (3) Perinephric abscess Code(s): N15.1 - RENAL AND PERINEPHRIC ABSCESS Status: Acute (4) Pyelonephritis Code(s): N12 - TUBULO-INTERSTITIAL NEPHRITIS, NOT SPCF ACUTE OR CHRONIC Status: Acute (5) Acute cystitis Code(s): N30.00 - ACUTE CYSTITIS WITHOUT HEMATURIA Status: Acute (6) Atrial fibrillation Code(s): I48.91 - UNSPECIFIED ATRIAL FIBRILLATION Status: Acute (7) RAMANDEEP (obstructive sleep apnea) Code(s): G47.33 - OBSTRUCTIVE SLEEP APNEA (ADULT) (PEDIATRIC) Status: Chronic (8) Status post gastric surgery Code(s): Z98.890 - OTHER SPECIFIED POSTPROCEDURAL STATES Status: Acute - Plan Plan: 72 yo f admitted for severe sepsis 2/2 acute complicated cystitis. Obstructed Uropathy with severe hydronephrosis, pyelonephritis, and probable perinephric absces- -Pt currently on zosyn. Will continue for now. Pt can be transitioned to an oral floroquinolone upon dc to inpatient rehab. Urology plans to schedule elective lithotripsy. Appreciate recommendations from Dr. Breaux and Dr. Mancilla. Sepsis 2/2 above - VSS. Afebrile overnight. See above Atrial fibrillation -rate controlled on diltiazem - Pradaxa started yesterday in preparation for cardioversion this morning. - On baby ASA daily - Appreciate recommendations from Dr. Locke. Esophageal Distention, s/p gastric sleeve surgery- -Abdominal CT notes that the distal esophagus is distended. This is likely sequela from her prior gastric sleeve surgery. We will assess for vitamin deficiencies per Dr. Mancilla recommendations. Elevated BNP - Around 400; no baseline lab value to compare - Echo completed, showed EF 50-55%, moderate MR, AR. RAMANDEEP -On home CPAP; will continue while in hospital -Will give nebs prn Code status: Full DVT ppx: SCDs Dispo: dc today to inpatient rehab after cardioversion <Kyra Bowman - Last Filed: 11/28/17 11:11> Attending Addendum - Attending Addendum Date/Time: 11/28/17 1960 I personally evaluated the patient and discussed the management with Dr. Bowman I agree with the History, Examination, Assessment and Plan documented above with any addition or exceptions noted below. Doing well. No acute changes. Now s/p cardioversion. No side effects. Spoke with EP cards, ok to d/c to rehab on anticoagulation. s/p nephrostomy tube. Minimal fluid in collection bag. No marlys pus. Continue antibiotics. Will follow up with urology for stent and stone retrieval at later date. Patient has been accepted at rehab. Will d/c this afternoon. Elier <Demetra Ortiz - Last Filed: 11/28/17 14:42>
[2017-11-28] MEDS: Dabigatran 150 mg Capsule PO SCH (11:43)
[2017-11-28] MEDS ORDERED: PROPOFOL 200 MG/20 ML VIAL ONE (13:33)
--- NOTE | 2017-11-28 13:38 | ECHO ---
TRANSESOPHAGEAL ECHO: INDICATION: This is a 72-year-old woman with atypical flutter. PROCEDURE: The patient taken to the PACU. The patient was sedated by Anesthesia. A transesophageal probe was p laced to the distal esophagus and stomach. Echocardiographic images were obtained and the transesopha geal probe was removed. FINDINGS: 1. Normal left ventricular systolic function. 2. Left atrial enlargement. 3. Mild mitral regurgitation. 4. Mild tricuspid regurgitation. 5. Spontaneous contrast in the left atrium and left atrial appendage. 6. No formed thrombus in atrium or left atrial appendage. 7. Atherosclerotic debris in the descending aorta. IMPRESSION: No formed thrombus in the left atrial or left atrial appendage. POS: [facility]
--- NOTE | 2017-11-28 13:42 | OP ---
ELECTRICAL CARDIOVERSION: INDICATION: The patient is a 72-year-old woman with typical atrial flutter. PROCEDURE: The patient taken to the PACU. The patient was sedated by anesthesiology. The patient was shocked w ith 100 joules of synchronized electricity. Patient converted to normal sinus rhythm. IMPRESSION: Successful electrical cardioversion.
--- NOTE | 2017-11-28 14:33 | PDOC.CTH ---
<Mary Jane Melton - Last Filed: 11/28/17 14:30> Cardiology Progress Note - Subjective EP progress note: Patient seen and evaluated. No new cardiac concerns or complaints. tolerated AILIN /CV well this AM. walking in halls now. - Objective Vital Signs Temp Pulse Resp BP Pulse Ox 11/28/17 11:43 87 11/28/17 08:00 98.6 F 87 17 95 11/28/17 07:30 98.6 F 87 17 101/67 96 11/28/17 03:50 98.2 F 81 17 105/69 96 Weight 183 lb 4.8 oz 11/27/17 11/28/17 11/29/17 06:59 06:59 06:59 Intake Total 1230 1000 Output Total 1475 800 Balance -245 200 - Physical Examination General/Neuro: alert & oriented x3, NAD Neck: no JVD present Lungs: CTA, unlabored respirations Heart: RRR Abdomen: NT/ND - Labs Result Diagrams: 11/28/17 04:50 11/28/17 04:50 Troponin/CKMB CK-MB (CK-2) 0.5 ng/mL (0-6.6) 11/23/17 10:08 Troponin I Less than 0.010 ng/mL (< 0.028) 11/23/17 10:08 - Assessment/Plan 1. Atrial flutter with RVR, AILIN/CV done this AM by Dr. Parnell. Now in NSR. Adding Flecainide 50mg BID, she has been on flecainide before and reported headaches before but attributes those HAs to being in AF with RVR at the time. Junctional (50s) on multaq. Low dose metoprolol for rate control. Toprol XL 25mg QD. 2. Oral anticoagulation, tolerating pradaxa 150mg BID. Monitor for bleeding, reversal agent available if acute bleeding occurs. 3. Left hydronephrosis with perc. nephrostomy in place. Plan for stent and lithotripsy once infection resolved, likely 4-6 weeks per urology. Ok for DC by EP. follow up in 4-6 weeks <Josiah Locke - Last Filed: 11/28/17 16:15> Cardiology Progress Note - Objective Vital Signs Temp Pulse Resp BP Pulse Ox 11/28/17 15:35 98.2 F 62 16 92/48 L 94 L 11/28/17 11:43 87 11/28/17 08:00 98.6 F 87 17 95 11/28/17 07:30 98.6 F 87 17 101/67 96 Weight 183 lb 4.8 oz 11/27/17 11/28/17 11/29/17 06:59 06:59 06:59 Intake Total 1230 1000 680 Output Total 1475 800 125 Balance -245 200 555 - Labs Result Diagrams: 11/28/17 04:50 11/28/17 04:50 Troponin/CKMB CK-MB (CK-2) 0.5 ng/mL (0-6.6) 11/23/17 10:08 Troponin I Less than 0.010 ng/mL (< 0.028) 11/23/17 10:08 Attending Addendum - Attending Addendum Date/Time: 11/28/17 2810 I personally evaluated the patient and discussed the management with Ms Melton. I agree with the History, Examination, Assessment and Plan documented above with any addition or exceptions noted below.
[2017-11-28 15:36] VITALS: BP 92/48; TEMP 98.2
[2017-11-28] MEDS ORDERED: Flecainide 50 MG TAB PO SCH (21:00)
--- NOTE | 2017-11-29 23:10 | EKG ---
Test Reason : Blood Pressure : / mmHG Vent. Rate : 117 BPM Atrial Rate : 159 BPM P-R Int : 000 ms QRS Dur : 096 ms QT Int : 318 ms P-R-T Axes : 000 -32 104 degrees QTc Int : 443 ms Atrial fibrillation with rapid ventricular response Left axis deviation Minimal voltage criteria for LVH, may be normal variant Anterior infarct , age undetermined Left Anterior Fascicular Block Abnormal ECG Confirmed by JAYESH MARTINEZ, GIULIANO ([id number]), video editor LAQUITA JERONIMO ([id number]) on 11/29/2017 11:09:53 PM Referred By: Confirmed By:GIULIANO MCCONNELL MD
== END 2017-11-28 15:53 | DRG 872 ==
LOC: ERS 09:42 → IMCU/EMU 14:23
PROVIDERS: ADMIT Family Medicine; ATTEND Family Medicine
PROC: 0T9430Z Drainage of Left Kidney Pelvis with Drainage Device, Percutaneous Approach (ICD-10-PCS; principal; 2017-11-25)
PROC: 5A2204Z Restoration of Cardiac Rhythm, Single (ICD-10-PCS; 2017-11-28)
DX: A41.89 Other specified sepsis (principal); I48.92 Unspecified atrial flutter; N13.6 Pyonephrosis; N30.00 Acute cystitis without hematuria; R65.20 Severe sepsis without septic shock; I95.9 Hypotension, unspecified; G47.33 Obstructive sleep apnea (adult) (pediatric); I48.0 Paroxysmal atrial fibrillation
CPT/HCPCS: 36415; 71045; 71046; 74178; 75984; 76770; 77002; 80048; 80053; 81003; 81015; 82180; 82306; 82553; 82607; 82728; 82746; 83540; 83550; 83605; 83735; 83880; 84100; 84145; 84425; 84443; 84446; 84484; 84590; 84597; 85025; 85060; 85610; 85730; 87040; 87070; 87077; 87086; 87186; 87205; 92960; 93005; 93010; 93306; 93312; 94660; 96361; 96365; 96367; C1729; G8978-GP-CK; G8979-GP-CI; G8987-GO-CJ; G8988-GO-CI; J0696; J2250; J2543; J2704; J3010; J3370; J3475; J7050

== ENCOUNTER 2017-12-09 11:35 | Outpatient (CLI) | payer MEDICARE, BC ==
[2017-12-09 12:07] LABS: #Eosinphils 0.1 thou/uL (0.0-0.7); #Monocytes 0.6 thou/uL (0.11-0.59); #Neutrophils 5.6 thou/uL (1.40-6.50); %Basophils 0.4 % (0.0-1.0); %Eosinophils 1.8 % (0.0-10.0); %Lymphocytes 13.6 % (21.0-51.0); %Monocytes 8.4 % (0.0-10.0); %Neutrophils 75.9 % (42.0-75.0); Hemoglobin 11.9 g/dL (12.0-16.0); Mean Corpuscular HGB CONC 32.1 g/dL (32.0-36.0); Mean Corpuscular Hemoglobin 28.5 pg (27.0-31.0); Mean Platelet Volume 7.1 fL (7.4-10.4); Platelet Count 525 thou/uL (130-400); RBC Distribution Width 12.7 % (11.5-14.5); Red Blood Cell (RBC) Count 4.18 mill/uL (4.20-5.40); White Blood Cell (WBC) Count 7.4 thou/uL (4.8-10.8)
[2017-12-09 12:16] LABS: INR-International Normal Ratio 1.7; PTT 55.3 SEC (22.9-36.1); Prothrombin Time 20.1 SEC (12.0-14.7)
--- NOTE | 2018-02-04 17:37 | EKG ---
Test Reason : Blood Pressure : / mmHG Vent. Rate : 067 BPM Atrial Rate : 067 BPM P-R Int : 170 ms QRS Dur : 100 ms QT Int : 412 ms P-R-T Axes : 054 -29 047 degrees QTc Int : 435 ms Normal sinus rhythm Normal ECG When compared with ECG of 25-NOV-2017 09:05, Sinus rhythm has replaced Atrial fibrillation Confirmed by DELFINA VIRGEN M.D. ([id number]) on 02/04/2018 5:36:41 PM Referred By: HO Confirmed By:DELFINA VIRGEN M.D.
== END 2017-12-09 11:36 | disposition home or self-care (01) ==
LOC: LABBT 11:35
PROVIDERS: ATTEND Urology
DX: Z01.818 Encounter for other preprocedural examination (principal); N20.2 Calculus of kidney with calculus of ureter
CPT/HCPCS: 85025; 85610; 85730; 93005; 93010

== ENCOUNTER 2017-12-17 05:44 | Day surgery (SDC) | payer MEDICARE, BC ==
[2017-12-09 11:58] VITALS: BMI 28.3
[2017-12-17] MEDS ORDERED: Midazolam HCl 2 mg/2 ml Vial ONE (06:11)
[2017-12-17] MEDS ORDERED: Fentanyl 100 MCG/2 ML VIAL ONE (06:11)
[2017-12-17 06:42] LABS: INR-International Normal Ratio 1.1; PTT 28.8 SEC (22.9-36.1); Prothrombin Time 14.3 SEC (12.0-14.7)
[2017-12-17] MEDS ORDERED: cefTRIAXone\\ROCEPHIN 2 GM in Sodium Chloride 0.9% 100 ML IVPB SCH (07:00)
--- NOTE | 2017-12-17 09:15 | RAD ---
KUB: HISTORY: Preoperative evaluation for kidney stones. FINDINGS: A left-sided nephrostomy tube is present. There are 2 calculi in the left kidney and 1 calculus in t he left proximal ureter. The ureteral calculus measures 8 mm. The larger of the kidney stones is bell periorly placed and measures about 9 mm. There are postop changes of cholecystitis. There are degenerative changes in the spine. There is fe ifeoma material in the colon. POS: [facility]
[2017-12-17] MEDS ORDERED: Iothalamate Meglumine 60% 50 ML VIAL FS ONE (09:35)
[2017-12-17] MEDS ORDERED: Oxybutynin 5 MG TAB ONE (09:52)
[2017-12-17] MEDS ORDERED: Phenazopyridine HCl 97.5 MG TABLET ONE (09:52)
--- NOTE | 2017-12-17 10:17 | RAD ---
LEFT RETROGRADE PYELOGRAM: HISTORY: Urinary tract calculi. FINDINGS/IMPRESSION: Six fluoroscopic images are submitted. There is removal of the proximal left ureteric calculus and p lacement of a left ureteral stent. The left-sided nephrostomy tube appears to have removed at the en d. POS: [facility]
[2017-12-17] MEDS ORDERED: Glycopyrrolate 0.2 MG/ML 5 ML SYRINGE ONE (11:19)
[2017-12-17] MEDS ORDERED: ePHEDrine/0.9% NaCl/PF SYRINGE 50 mg/10 ml ONE (11:19)
[2017-12-17] MEDS ORDERED: PHENYLEPHRINE-NS 100 MCG/ML 10 ML SYRINGE ONE (11:19)
[2017-12-17] MEDS ORDERED: PROPOFOL 200 MG/20 ML VIAL ONE (11:19)
[2017-12-17] MEDS ORDERED: Lidocaine 1% PF 5 ML VIAL ONE (11:19)
[2017-12-17] MEDS ORDERED: Dexamethasone 20 MG/5 ML VIAL ONE (11:19)
[2017-12-17] MEDS ORDERED: Ondansetron HCl/PF 4 MG/2 ML Vial ONE (11:19)
--- NOTE | 2017-12-17 11:36 | OP ---
DATE OF PROCEDURE: 12/17/2017 PREOPERATIVE DIAGNOSES: 1. Ms. Santana is a 72-year-old female with history of left Proteus pyelonephritis and systemic inflammatory response syndrome. 2. History of multiple left urolithiasis: left proximal ureteral calculi, 7 mm just distal to the UPJ, left midpole 10 mm stone, lower pole 8 mm stone, status post percutaneous nephrostomy tube. POSTOPERATIVE DIAGNOSES: 1. Ms. Santana is a 72-year-old female with history of left Proteus pyelonephritis and systemic inflammatory response syndrome. 2. History of multiple left urolithiasis; left proximal ureteral calculi, 7 mm just distal to the UPJ, left midpole 10 mm stone, lower pole 8 mm stone, status post percutaneous nephrostomy tube. PROCEDURES: Cystoscopy, left retrograde, left nephrostomy tube removal, dilation of the left intramural ureter, flexible ureteroscopy, pyeloscopy, 6 x 24 double-J ureteral stent placement with distal tail in situ, laser lithotripsy of multiple urolithiasis: left proximal, multiple left renal calculi , basket extraction of stone fragments. SURGEON: Aleah Breaux D.O. ANESTHESIA: General. COMPLICATIONS: None apparent. DISPOSITION: To recovery room in stable condition. SPECIMEN: Stone for chemical analysis. INDICATIONS FOR THE PROCEDURE AND HISTORY: Ms. Santana is a 72-year-old female whom I seen as an inpatient back in 11/25/2017. As she presented with history of malaise, nausea and leukocytosis, urine culture positive for Proteus. She was found to have multiple stone burden with left obstructing proximal ureteral stone, multiple left renal lithiasis dimensions as above. Due to her presenting complaint of pyelonephritis, early sepsis, she underwent emergent left percutaneous nephrostomy tube with defervescence and resolution of leukocytosis. Her followup urine culture is negative and she presents today for staged intervention of her multiple left renal and ureteral calculi. Risks and complications of the procedure was reviewed with her in detail including, but not limited to, bleeding, pain, infection, sepsis, stricture formation, injury to ureter, kidney, bladder, AK, CVA. The patient has been cleared by Dr. Shaikh to proceed. She has been approved to hold the Pradaxa 3 days prior to her surgery. DESCRIPTION OF THE PROCEDURE: After an informed consent is signed, the patient is taken to the operating room, placed in a dorsal lithotomy position with the genital area prepped and draped in the usual surgical sterile fashion. Bilateral MALIK hose, SCDs, and broad-spectrum antibiotics were provided. A 21 [place] cystoscope was utilized for cystoscopy which upon entering the bladder, no abnormality was seen. The UO was identified in normal anatomical location. A left open-ended catheter was passed into the left UO and a retrograde pyelogram was performed demonstrating opacification of the collecting system; however, most of which drained through her nephrostomy tube. A filling defect in the proximal ureter consistent with a large left obstructing ureteral stone was seen and radiodensity stones were seen consistent with the CT scan. A 0.35 sensor wire was placed into the left mid pole, at this time we passed a [employer] 12 [place]i 4 cm balloon dilator. We held pressure dilating the intramural ureter for approximately 1-2 minutes. After subsequent dilatation, balloon was completely deflated. A 10 [place] dual-lumen access sheath was unable to be passed to the level of the proximal ureter with ease and a second safety wire, 0.35 Super Stiff was placed in the left midpole. At this time, we passed an 11/13 [place]i x 28 cm navigator to the level of the proximal ureter just distal to the ureteral stone and this passed without difficulty. A flexible ureteroscope was then advanced and we visualized the stone directly. We laser lithotripsied the stone with 365 micron laser fiber at a dust setting. A stone was fragmented successfully then subsequently migrated into the renal pelvis, midpole. We surveyed the collecting system with a nephrostomy tube in situ. As there was visual hinderance from the nephrostomy tube, the nephrostomy tube was cut and removed intact. We then surveyed the collecting system demonstrating fragmented stone debris from the proximal ureter into to upper pole, and a large midpole stone measuring 10 cm in the lower pole stone measuring approximately 7-8 mm was seen. We laser fragmented the ureteral stone fragment to minute fragments. We then subsequently passed the laser fiber to the level of the mid pole fragmenting the large mid pole stone. The left lower pole stone was then delivered to the upper pole as it was hindered by the acute infundibular angle. At the end of the procedure, there were only minute stone fragments of concern. We surveyed the ureter, which demonstrated no evidence of ureteral mucosa, trauma or stone debris. The flexible ureteroscope was then advanced distally visualizing the ureter intact. The navigator then was subsequently removed as well. Bladder was completely emptied. A 6 x 24 double-J ureteral stent was passed over a working wire. At the end of the procedure, all working safety wire was removed. A 6 x 24 double- J ureteral stent was confirmed on fluoroscopy in proper position in the renal pelvis and the distal coil with adequate redundancy in the bladder. She tolerated the procedure well and transported to the recovery room in stable condition. She is discharged with [place]ezi 5/325 #50, VESIcare 5 mg #20, Omnicef until followup appointment as she presented with infected stone, Colace p.r.n. and AZO p.r.n. She has a followup appointment with me on 01/01/2018 for tentative cysto stent pull at 8:[address] stone protocol will be arranged for the patient to be performed day before her followup appointment. If CT negative for obvious stone debris, we will remove her ureteral stent under local. KTAARINA
[2017-12-23 10:23] LABS: CA Oxalate Monohydrate 95 % (.); Color Brown (.); Stone Weight 37.2 mg (.)
== END 2017-12-17 11:35 | disposition home or self-care (01) ==
LOC: SDC 05:44
PROVIDERS: ATTEND Urology
PROC: 0TF78ZZ Fragmentation in Left Ureter, Via Natural or Artificial Opening Endoscopic (ICD-10-PCS; principal; 2017-12-17)
PROC: 0T778DZ Dilation of Left Ureter with Intraluminal Device, Via Natural or Artificial Opening Endoscopic (ICD-10-PCS; 2017-12-17)
PROC: 0TC78ZZ Extirpation of Matter from Left Ureter, Via Natural or Artificial Opening Endoscopic (ICD-10-PCS; 2017-12-17)
PROC: 0T778DZ Dilation of Left Ureter with Intraluminal Device, Via Natural or Artificial Opening Endoscopic (ICD-10-PCS; 2017-12-17)
DX: N20.1 Calculus of ureter (principal); I48.91 Unspecified atrial fibrillation; G47.30 Sleep apnea, unspecified; Z79.82 Long term (current) use of aspirin; Z79.01 Long term (current) use of anticoagulants; Z79.899 Other long term (current) drug therapy; Z88.8 Allergy status to other drugs, medicaments and biological substances; Z98.890 Other specified postprocedural states
CPT/HCPCS: 52356; 74018; 74420; 82365; 85610; 85730; 88300; C1758; C1769; J0696; J1100; J2001; J2250; J2405; J2704; J3010; J7050; Q9961

== ENCOUNTER 2017-12-31 08:18 | Outpatient (CLI) | payer MEDICARE, BC | END 2017-12-31 08:19 | disposition home or self-care (01) | LOC: BICCT 08:18 | PROVIDERS: ATTEND Urology | DX: N20.0 Calculus of kidney (principal); Z96.0 Presence of urogenital implants | CPT/HCPCS: 74176 ==

== ENCOUNTER 2018-03-30 08:53 | Outpatient (CLI) | payer MEDICARE, BC | END 2018-03-30 08:54 | disposition home or self-care (01) | LOC: BICULT 08:53 | PROVIDERS: ATTEND Urology | DX: N20.0 Calculus of kidney (principal); N28.1 Cyst of kidney, acquired | CPT/HCPCS: 36415; 74018; 76770; 80048; 81001; 83970; 84550; 87086 ==